=== PATIENT | female | born 1985 | race Caucasian/White ===

== ENCOUNTER 2023-06-08 07:17 | Outpatient (OUT) | payer BC, SELFPAY ==
--- NOTE | 2023-06-08 08:00 | MR_ITS ---
The [address] [address] Patient Name: MIRTA PORRAS MRN: [facility]:[id number] date: 1985 Sex: F Assigned Patient Location: MRI Current Patient Location: MRI Accession/Order Number: [id number] Exam Date: 06/08/2023 08:00 Report Date: 06/08/2023 10:01 At the request of: YARED RAMIREZ Procedure: MR head/brain wo con EXAMINATION: MR head/brain wo con HISTORY: Migraine G43.909 COMPARISON: No relevant comparison available. TECHNIQUE: A variety of imaging planes and parameters were utilized for visualization of suspected pathology. Images were performed without contrast. FINDINGS: CEREBRUM: No edema, hemorrhage, mass, acute infarction, or inappropriate atrophy. CEREBELLUM: No edema, hemorrhage, mass, acute infarction, or inappropriate atrophy. BRAINSTEM: No edema, hemorrhage, mass, acute infarction, or inappropriate atrophy. CSF SPACES: Ventricles, cisterns, and sulci are appropriate for age. No hydrocephalus, subarachnoid hemorrhage, or mass. SKULL: No mass or other significant visible lesion. SINUSES: Limited views demonstrate no significant mucosal thickening or fluid. ORBITS: Limited views are unremarkable. OTHER: Negative. MR/MR head/brain wo con IMPRESSION: 1. Normal examination. Electronically authenticated by: KELLY FRANCO Date: 06/08/2023 10:01
[2023-06-08 09:00] LABS: Basophils Percent Auto 0.7 % (0.2-2.0); Eosinophils Absolute Auto 0.2 10^3/uL (0.0-0.7); Hematocrit 39.8 % (36.0-48.0); Hemoglobin 13.2 g/dL (12.0-16.0); Immature Granulocytes Abs Auto 0.01 10^3/uL (0.00-0.03); Immature Granulocytes Pct Auto 0.2 % (0.0-0.5); Lymphocytes Absolute Auto 1.4 10^3/uL (1.2-3.8); Lymphocytes Percent Auto 31.9 % (20.5-60.0); Mean Corpuscular HGB Conc 33.2 g/dL (29.9-35.2); Mean Corpuscular Hemoglobin 30.2 pg (26.7-34.0); Mean Corpuscular Volume 91.1 fL (81.0-99.0); Mean Platelet Volume 10.6 fL (9.5-13.5); Monocytes Absolute Auto 0.4 10^3/uL (0.3-0.8); Monocytes Percent Auto 9.6 % (1.7-12.0); Neutrophils Absolute Auto 2.3 10^3/uL (1.4-6.5); Neutrophils Percent Auto 53.6 % (43.0-75.0); Platelet Count 257 10^3/uL (150-450); Red Blood Count 4.37 10^6/uL (4.20-5.40); Red Cell Distribution Width 11.7 % (11.0-15.0); White Blood Count 4.3 10^3/uL (4.0-11.0)
[2023-06-08 09:53] LABS: Estimated Average Glucose 100 mg/dL; Glycohemoglobin A1C 5.1 % (4.5-6.2)
[2023-06-08 11:57] LABS: Sodium 138 mmol/L (136-145)
[2023-06-08 11:58] LABS: Alanine Aminotransferase 21 U/L (14-59); Albumin Globulin Ratio 1.3; Alkaline Phosphatase 53 U/L (46-116); Anion Gap 11.4; Aspartate Amino Transferase 13 U/L (15-37); BUN Creatinine Ratio 10.6; Bilirubin Total 0.4 mg/dL (0.2-1.0); Calcium 8.7 mg/dL (8.5-10.1); Carbon Dioxide 27.7 mmol/L (21.0-32.0); Chloride 103 mmol/L (98-107); Cholesterol 196 mg/dL (<=200); Estimated GFR (African America >60 (>=60); Estimated GFR (Non-African Ame >60 (>=60); Globulin 3.1 g/dL; Glucose 91 mg/dL (74-106); Potassium 4.1 mmol/L (3.5-5.1); Total Protein 7.1 g/dL (6.4-8.2); Triglycerides 44 mg/dL (<=150); VLDL CHOLESTEROL 8.8 mg/dL
[2023-06-08 11:59] LABS: Chol HDL Ratio 2.4; HDL Cholesterol 82 mg/dL (40-60)
== END 2023-06-08 07:18 | disposition home or self-care (01) ==
LOC: MRI 07:24
PROVIDERS: PCP Family Medicine; Visit Provider Family Medicine
DX: Z00.00 Encounter for general adult medical examination without abnormal findings (principal); G43.909 Migraine, unspecified, not intractable, without status migrainosus; R73.09 Other abnormal glucose
CPT/HCPCS: 36415; 70551; 80053; 80061; 83036; 84443; 85025

== ENCOUNTER 2023-06-25 09:56 | Outpatient (OUT) | payer BC, SELFPAY ==
--- NOTE | 2023-06-25 10:00 | MM_ITS ---
Patient: MIRTA PORRAS Exam Date: 06/25/2023 : 1985 Gender:F Ordering : DR Travis Morrison . Admission #: [id number] Family : DR Frederick Tompkins . Order #: [id number] CLICK HERE TO VIEW EXAM CORRECTION: Examination was correctly performed of the LEFT breast (not the right breast). Corrected on: 07/19/2023; RADIOLOGY REPORT PROCEDURE: MM TOMOSYNTHESIS DIAGNOSTIC LT COMPARISON: MG MAMM DIAGNOSTIC 3D JORDON CAD, 11/28/2022. INDICATIONS: Left Breast Mass N63.20 Calculator Name NCI Breast Cancer Risk Assessment Tool 5 Year Breast Cancer Risk Not Reported. Lifetime Breast Cancer Risk Not Reported. Personal Breast Cancer No Personal Ovarian Cancer No Treatments None Family Cancers None LOCATION: [facility] BREAST COMPOSITION: Heterogeneously dense,which may obscure small masses. FINDINGS: DIAGNOSTIC CATEGORY 2--BENIGN FINDING: LEFT RIGHT BREAST: Stable biopsy marker clip and partially circumscribed 2.5 cm mass within the upper central breast approximately 12 o'clock. No significant change has occurred. RECOMMENDATIONS: ROUTINE MAMMOGRAM AND CLINICAL EVALUATION IN 12 MONTHS. PLEASE NOTE: A NORMAL MAMMOGRAM DOES NOT EXCLUDE THE POSSIBILITY OF BREAST CANCER. A CLINICALLY SUSPICIOUS PALPABLE LUMP SHOULD BE BIOPSIED. Dictated by: Chris Franks M.D. on 06/26/2023 at 13:09 Approved by: Chris Franks M.D. on 06/26/2023 at 13:39 Dictated by: Chris Franks M.D. on 07/19/2023 at 09:30 Approved by: Chris Franks M.D. on 07/19/2023 at 09:30
--- NOTE | 2023-06-25 10:39 | US_ITS ---
Patient: MIRTA PORRAS Exam Date: 06/25/2023 : 1985 Gender:F Ordering : DR Travis Morrison . Admission #: [id number] Family : DR Frederick Tompkins . Order #: [id number] CLICK HERE TO VIEW EXAM RADIOLOGY REPORT PROCEDURE: US BREAST LT LIMITED COMPARISON: US BREAST LEFT LIMITED, 11/28/2022. MM TOMOSYNTHESIS DIAGNOSTIC LT, 06/25/2023. INDICATIONS: lump left breast TECHNIQUE: Breast ultrasound was performed, with evaluation focusing only on specific areas of concern. FINDINGS: DIAGNOSTIC CATEGORY 2--BENIGN FINDING: RIGHT BREAST: Stable biopsy marker clip in partially circumscribed 2.5 cm mass within the upper central breast approximately 12 o'clock position on today's mammogram. Ultrasound evaluation demonstrates a stable hypoechoic 1.7 x 1.3 x 0.8 cm mass at the 12 o'clock position with adjacent biopsy marker clip. Annual screening mammography is recommended. RECOMMENDATIONS: ROUTINE MAMMOGRAM AND CLINICAL EVALUATION IN 12 MONTHS. PLEASE NOTE: A NORMAL ULTRASOUND EXAMINATION DOES NOT EXCLUDE THE POSSIBILITY OF BREAST CANCER. A CLINICALLY SUSPICIOUS PALPABLE LUMP SHOULD BE BIOPSIED. Dictated by: Chris Franks M.D. on 06/26/2023 at 14:16 Approved by: Chris Franks M.D. on 06/26/2023 at 14:47
== END 2023-06-25 09:57 | disposition home or self-care (01) ==
LOC: MAMMO 09:56
PROVIDERS: PCP Family Medicine; Visit Provider Obstetrics & Gynecology
DX: N63.25 Unspecified lump in the left breast, overlapping quadrants (principal)
CPT/HCPCS: 76642; 77065; G0279

== ENCOUNTER 2024-04-10 19:26 | Outpatient (REF) | payer BC, SELFPAY ==
[2024-04-15 00:08] LABS: Age Gdln ACOG Testing Note (.); HPV Aptima Negative (Negative); IGP, Aptima HPV, rfx 16/18,45 Note (.)
== END 2024-04-10 19:27 | disposition home or self-care (01) ==
LOC: LAB 19:26
PROVIDERS: PCP Family Medicine; Visit Provider Obstetrics & Gynecology
DX: Z01.419 Encounter for gynecological examination (general) (routine) without abnormal findings (principal)
CPT/HCPCS: 87624; 88175

== ENCOUNTER 2024-06-02 07:24 | Outpatient (OUT) | payer BC, SELFPAY ==
--- NOTE | 2024-06-02 | MM_ITS ---
Patient Name: MIRTA PORRAS MR#: [id number] : 1985 Exam Date: 06/02/2024 Ordering Doctor: DR Travis Morrison . RADIOLOGY REPORT PROCEDURE: MM TOMOSYNTHESIS SCREENING BI COMPARISON: MM TOMOSYNTHESIS DIAGNOSTIC LT, 06/25/2023. MG MAMM DIAGNOSTIC 3D JORDON CAD, 11/28/2022. INDICATIONS: Screening for malignant neoplasm of breasts Calculator Name NCI Breast Cancer Risk Assessment Tool 5 Year Breast Cancer Risk Not Reported. Lifetime Breast Cancer Risk Not Reported. Personal Breast Cancer No Personal Ovarian Cancer No Treatments None Family Cancers None LOCATION: The [facility] BREAST COMPOSITION: The breasts are heterogeneously dense,which may obscure small masses. FINDINGS: DIAGNOSTIC CATEGORY 2--BENIGN FINDING: RIGHT BREAST: No significant suspicious finding. Scattered benign-appearing lymph nodes are present. No significant change has occurred. LEFT BREAST: No significant suspicious finding. Stable mass with adjacent biopsy marker clip within supra-areolar anterior breast No significant change has occurred. RECOMMENDATIONS: ROUTINE MAMMOGRAM AND CLINICAL EVALUATION IN 12 MONTHS. PLEASE NOTE: A NORMAL MAMMOGRAM DOES NOT EXCLUDE THE POSSIBILITY OF BREAST CANCER. A CLINICALLY SUSPICIOUS PALPABLE LUMP SHOULD BE BIOPSIED. Dictated by: Chris Franks M.D. on 06/02/2024 at 16:05 Approved by: Chris Franks M.D. on 06/02/2024 at 16:08
--- OUTSIDE RECORDS SUMMARY | 2024-06-02 07:26 | XMS_ITS | CCD ---
Author Organization [facility] Care Team Providers Care Front Desk Team Member Name Role Phone Jennifer Rodrigues Unavailable WILLARD ., DR RIVERA Attending Unavailable WILLARD ., DR RIVERA Consulting Unavailable HOY ., DR VAIL Primary Care Unavailable WILLARD ., DR RIVERA Admitting Unavailable WILLARD ., DR RIVERA Consulting Unavailable HOY ., DR VAIL Primary Care Unavailable WILLARD ., DR RIVERA Admitting Unavailable WILLARD ., DR RIVERA Attending Unavailable ZIEBER, DR KELLY Domínguez Consulting Unavailable HOY ., DR VAIL Attending Unavailable HOY ., DR VAIL Consulting Unavailable HOY ., DR VAIL Primary Care Unavailable HOY ., DR VAIL Admitting Unavailable WILLARD ., DR RIVERA Consulting Unavailable WILLARD ., DR RIVERA Admitting Unavailable HOY ., DR VAIL Primary Care Unavailable WILLARD ., DR RIVERA Attending Unavailable CANTON, DR GE Lopez Consulting Unavailable HOY ., DR VAIL Primary Care Unavailable WILLARD ., DR RIVERA Admitting Unavailable WILLARD ., DR RIVERA Attending Unavailable WILLARD ., DR RIVERA Consulting Unavailable WILLARD ., DR RIVERA Attending Unavailable WILLARD ., DR RIVERA Consulting Unavailable HOY ., DR VAIL Primary Care Unavailable WILLARD ., DR RIVERA Admitting Unavailable ZIEBER, DR KELLY Domínguez Consulting Unavailable WILLARD ., DR RIVERA Attending Unavailable HOY ., DR VAIL Primary Care Unavailable WILLARD ., DR RIVERA Admitting Unavailable ABDOULAYE CHACKO Admitting Unavailable TOOTIE CABRERA Consulting Unavailable JAMES ., DR VAIL Primary Care Unavailable ABDOULAYE CHACKO Attending Unavailable GE GONZALES Consulting Unavailable MIGUEL MORRISON Attending Unavailable Allergies Allergy Classification Reported Allergen(s) Allergy Type Date of Onset Reaction(s) Facility (1 source) Sulfacetamide / Sulfur Drug Allergy Apttuses [facility] Other (1 source) Sulfonamides (Antibiotic) Drug allergy (disorder) [address] [facility] Repository Medications Current Medications Medication Drug Class(es) Dates Sig (Normalized) Sig (Original) levothyroxine (1 source) l-Thyroxine Levothyroxine So dium Active Problems Active Problems Problem Classification Problem Date Documented Da te Episodic/Chronic Menstrual disorders (5 sources) Irregular menstruation, unspecified; Translations: [IRREGULAR MENSTRUATION UNSPECIFIED] Onset: 12-07-2022 Chronic Nonmalignant breast conditions (5 sources) Hypertrophy of breast; Translations: [Unspecified lump in the left breast, unspecified quadrant] Onset: 11-28-2022 Episodic Other upper respiratory infections (1 source) Acute upper respiratory infection, unspecified Episodic Unclassified (4 sources) Unspecified lump in the left breast, overlapping quadrants; Translations: [UNS LUMP LT BREAST OVRLPNG QUADRNTS] Onset: 12-05-2022 Past or Other Problems Problem Classification Problem Date Documented Date Episodic/Chronic Immunizations and screening for infectious disease (2 sources) Contact with and (suspected) exposure to other viral communicable diseases; Translations: [Encounter for screening for human papillomavirus (HPV)] Onset: 09-07-2022 Episodic Other connective tissue disease (3 sources) Pain in right finger(s); Translations: [PAIN IN RIGHT FINGERS] Onset: 04-23-2022 Episodic Other screening for suspected conditions (not mental disorders or infectious disease) (4 sources) Encounter for screening for malignant neoplasm of cervix; Translations: [ENC SCREENING MALIG NEOPLASM CERV] Onset: 09-05-2022 Episodic Skin and subcutaneous tissue infections (1 source) Cellulitis of right finger; Translations: [CELLULITIS OF RIGHT FINGER] Onset: 04-25-2022 Episodic Results Test Name Value Interpretation Reference Range Facility US PREG TVon 12-21-2022 US PREG TV EXAMINATION: US PREG TV HISTORY: Irregular periods COMPARISON: No relevant comparison available. FINDINGS: GESTATIONAL SAC: Absent YOLK SAC: Absent POLE: Absent CARDIAC: Absent UTERUS: Normal size and appearance. Endometrium is 4 mm in thickness. OVARIES: Right: Corpus lutein cyst or collapsing follicle. Left: Normal. CERVIX: 1.7 cm in length and closed. CUL-DE-SAC: Normal. OTHER: None. AGE BY LMP: Unknown THAD BY LMP: AGE BY US CRL: Not applicable THAD BY US CRL: IMPRESSION: 1. No intrauterine . Thin endometrium; no suspicious adnexal findings. Electronically authenticated by: KELLY FRANCO Date: 2022-12-21 15:[address] 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 Morrison. Verified with Gracie that report was present in the office. Original Report EXAM: US VAC ASST BX BREAST LT W CLIP HISTORY: Lump in left breast COMPARISON: Ultrasound breast left 11/28/2022 TECHNIQUE: After obtaining informed consent, ultrasound-guided biopsy was performed in the usual sterile manner. The location of the biopsy was then marked as indicated below. FINDINGS: Specimen #, Location: 3 sample cores, 12:00 left breast, hypoechoic 1.7 x 1.2 x 0.8 cm mass. Biopsy Needle: 13 gauge vacuum core biopsy needle. Marker(s): A single metallic marker was placed in the appropriate targeted location. Medication: Buffered 1% Lidocaine with epinephrine administered locally. Complications: None. Pathology: Pending. IMPRESSION: 1. Uneventful ultrasound-guided breast biopsy. 2. Pathology results are pending. An addendum to this report will be provided after pathology results are available. Normal [facility] PREG QUANT HCGon 12-12-2022 HCG QUANT 554 mIU/mL Normal [facility] Comment on above: Performed By: #### P REGQNT #### [facility] [address] [place] [address] Dr. Sherri Segundo HCG RANGE SEE BELOW Normal [facility] Comment on above: Result Comment: 5-50 0.2-1 WEEK 50-500 1-2 WEEKS 100-5,000 2-3 WEEKS 500-10,000 3-4 WEEKS 1,000-50,000 4-5 WEEKS 10,000-100,000 5-6 WEEKS 15,000-200,000 6-8 WEEKS 10,000-100,000 2-3 MONTHS Performed By: #### P REGQNT #### [facility] [address] [place] [address] Dr. Sherri Segundo PREG QUANT HCGon 12-07-2022 HCG QUANT 101 mIU/mL Normal [facility] Comment on above: Performed By: #### P REGQNT #### [facility] [address] [place] [address] Dr. Sherri Segundo HCG RANGE SEE BELOW Normal [facility] Comment on above: Result Comment: 5-50 0.2-1 WEEK 50-500 1-2 WEEKS 100-5,000 2-3 WEEKS 500-10,000 3-4 WEEKS 1,000-50,000 4-5 WEEKS 10,000-100,000 5-6 WEEKS 15,000-200,000 6-8 WEEKS 10,000-100,000 2-3 MONTHS Performed By: #### P REGQNT #### [facility] [address] [place] [address] Dr. Sherri Segundo PREG QUANT HCGon 12-05-2022 HCG QUANT 40 mIU/mL Normal [facility] Comment on above: Performed By: #### [id number] #### [facility] [address] [place] [address] Dr. Sherri Segundo HCG RANGE SEE BELOW Normal [facility] Comment on above: Result Comment: 5-50 0.2-1 WEEK 50-500 1-2 WEEKS 100-5,000 2-3 WEEKS 500-10,000 3-4 WEEKS 1,000-50,000 4-5 WEEKS 10,000-100,000 5-6 WEEKS 15,000-200,000 6-8 WEEKS 10,000-100,000 2-3 MONTHS Performed By: #### 4 [id number] #### [facility] [address] [place] [address] Dr. Sherri Segundo MG MAMM DIAGNOSTIC 3D JORDON CA Don 11-28-2022 MG MAMM DIAGNOSTIC 3D JORDON CAD Patient: MIRTA PORRASYovana Exam Date: 11/28/2022 : 1985 Gender:F Ordering : DR MIGUEL MORRISON . Admission #: [id number] Family : Order #: [id number] CLICK HERE TO VIEW EXAM RADIOLOGY REPORT PROCEDURE: MAMMOGRAM DIAGNOSTIC 3D BILATERAL CAD COMPARISON: US BREAST LEFT LIMITED, 11/28/2022. INDICATIONS: Lump in left breast Calculator Name NCI Breast Cancer Risk Assessment Tool 5 Year Breast Cancer Risk Not Reported. Lifetime Breast Cancer Risk Not Reported. Personal Breast Cancer No Personal Ovarian Cancer No Treatments None Family Cancers None LOCATION: [facility] BREAST COMPOSITION: Heterogeneously dense,which may obscure small masses. FINDINGS: DIAGNOSTIC CATEGORY 4--SUSPICIOUS FOR MALIGNANCY. FINDING DOES NOT EXHIBIT CLASSIC FINDINGS OF BREAST CANCER: The breasts are medium in size with heterogeneously dense fibroglandular tissue limiting diagnostic sensitivity.Scattere d benign-appearing calcifications are present. Scattered benign-appearing lymph nodes are present. RIGHT BREAST: Area focal asymmetry seen on the CC projection in the outer half of the breast not seen on the MLO projection likely representing overlap of fibroglandular tissue. LEFT BREAST: In the area the patient's palpable , a 2.3 x 1.3 cm area of increased density is noted deep to the triangle marker, upper-outer quadrant, mid breast. Ultrasound demonstrates at the 12 o'clock position 2.3 cm from the nipple a lobulated heterogeneous hypoechogenic solid vascular mass measuring 1.5 x 1.0 x 1.3 cm. 1 cm away is a similar hypoechogenic oval well-circumscribed mass measuring 0.8 x 0.5 x 0.8 cm. Findings were discussed with the patient. Left breast ultrasound-guided core biopsy of the larger more suspicious 1.5 cm nodule was recommended to the patient RECOMMENDATIONS: ULTRASOUND-GUIDED CORE BIOPSY: LEFT BREAST 1.5 cm mass PLEASE NOTE: A NORMAL MAMMOGRAM DOES NOT EXCLUDE THE POSSIBILITY OF BREAST CANCER. A CLINICALLY SUSPICIOUS PALPABLE LUMP SHOULD BE BIOPSIED. Dictated by: Ge Terry MD on 11/28/2022 at 10:55 Approved by: Ge Terry MD on 11/28/2022 at 11:[address] [facility] US BREAST LEFT LIMITEDon US BREAST LEFT LIMITED Patient: VERN MIRTA LevyYovana Exam Date: 11/28/2022 : 1985 Gender:F Ordering : DR MIGUEL MORRISON . Admission #: [id number] Family : Order #: [id number] CLICK HERE TO VIEW EXAM RADIOLOGY REPORT PROCEDURE: ULTRASOUND BREAST LEFT LIMITED COMPARISON: MG MAMM DIAGNOSTIC 3D JORDON CAD, 11/28/2022. INDICATIONS: Lump in left breast TECHNIQUE: Breast ultrasound was performed, with evaluation focusing only on specific areas of concern. FINDINGS: DIAGNOSTIC CATEGORY 4--SUSPICIOUS FOR MALIGNANCY. FINDING DOES NOT EXHIBIT CLASSIC FINDINGS OF BREAST CANCER: At the 12 o'clock position 2.3 cm from the nipple lobulated heterogeneous hypoechogenic solid vascular mass measuring 1 5 x 1.0 x 1.3 cm. 1 cm away is similar hyper echogenic oval well-circumscribed mass measuring 0.8 x 0.5 x 0.8 cm. RECOMMENDATIONS: ULTRASOUND-GUIDED CORE BIOPSY: LEFT BREAST PLEASE NOTE: A NORMAL ULTRASOUND EXAMINATION DOES NOT EXCLUDE THE POSSIBILITY OF BREAST CANCER. A CLINICALLY SUSPICIOUS PALPABLE LUMP SHOULD BE BIOPSIED. Dictated by: Ge Terry MD on 12/07/2022 at 07:40 Approved by: Ge Terry MD on 12/07/2022 at 07:43 Normal [facility] COVID/FLU/RSV RT-PCRon 11-02 SARS-CoV-2 (COVID-19) RNA BALTA+probe Ql (Unsp spec) Negative [facility] Other COVID/FLU/RSV RT-PCR Negative [facility] Other PAP ACOG PANEL 2: 30 to 65on 09-13-2022 . . Normal [facility] Comment on above: Result Comment: Perf ormed at: WB Performed By: #### [id number] #### [facility] [address] [address] [address] Sherri Segundo Age Gdln ACOG Testing 30-65 Normal [facility] Comment on above: Performed By: #### [id number] #### [facility] [address] [place], [place] [address] Dr. Sherri Segundo DIAGNOSIS: Comment Normal [facility] Comment on above: Result Comment: NEGA TIVE FOR INTRAEPITHELIAL LESION OR MALIGNANCY. THIS SPECIMEN WAS RESCREENED PART OF OUR [employer] EXECUTIVE PROGRAM. Performed at: WB Performed By: #### [id number] #### [facility] [address] [place] [address] Dr. Sherri Segundo HPV Aptima Negative Normal Negative [facility] Comment on above: Result Comment: This nucleic acid amplification test detects fourteen high-risk HPV types (16,18,31,33,35,39,45,51,52,56,58,59,66,68) without differentiation. Performed at: =G Performed By: #### [id number] #### [facility] [address] [address] [address] Sherri Segundo HPV Genotype Reflex Comment Normal [facility] Comment on above: Result Comment: Crit eria not met, HPV Genotype not performed. Performed at: WB Performed By: #### [id number] #### [facility] [address] [place] [address] Dr. Sherri Segundo Methodology: Comment Normal [facility] Comment on above: Result Comment: This liquid based ThinPrep(R) pap test was screened with the use of an image guided system. Performed at: WB Performed By: #### [id number] #### [facility] [address] [place] [address] Dr. Sherri Segundo Note: Comment Normal [facility] Comment on above: Result Comment: The Pap smear is a screening test designed to aid in the detection of premalignant and malignant conditions of the uterine cervix. It is not a diagnostic procedure and should not be used as the sole means of detecting cervical cancer. Both false-positive and false-negative reports do occur. . Performed at: WB Performed By: #### [id number] #### [facility] [address] [place] [address] Dr. Sherri Segundo Performed by: Comment Normal [facility] Comment on above: Result Comment: Joselito Estrada, Copier And [employer]inter Field Technician Performed at: WB Performed By: #### [id number] #### [facility] [address] [place] [address] Dr. Sherri Segundo QC reviewed by: Comment Normal [facility] Comment on above: Result Comment: Oral a Conner, Supervisory Copier [employer] Printer Field Technician (ASCP) Performed at: WB Performed By: #### [id number] #### [facility] [address] [place] [address] Dr. Sherri Segundo Specimen adequacy: Comment Normal [facility] Comment on above: Result Comment: Sati sfactory for evaluation. Endocervical and/or squamous metaplastic cells (endocervical component) are present. Performed at: WB Performed By: #### 4 [id number] #### [facility] [address] [place] [address] Dr. Sherri Segundo CBC AUTO DIFFon 06-27-2022 BASO # 0.1 103/ul Normal 0.0-0.1 [facility] Comment on above: Performed By: #### C BC #### [facility] [address] [place] [address] Dr. Sherri Segundo Basophils/100 WBC (Bld) 1.1 % Normal 0.2-2.0 [facility] Comment on above: Performed By: #### C BC #### [facility] [address] [place] [address] Dr. Sherri Segundo EO # 0.2 103/ul Normal 0.0-0.7 [facility] Comment on above: Performed By: #### C BC #### [facility] [address] [place] [address] Dr. Sherri Segundo Eosinophils/100 WBC (Bld) 4.5 % Normal 0.9-7.0 [facility] Comment on above: Performed By: #### C BC #### [facility] [address] [place] [address] Dr. Sherri Segundo Erythrocyte distribution width (RBC) [Ratio] 11.9 % Normal 11.0-15.0 [facility] Comment on above: Performed By: #### C BC #### [facility] [address] [place] [address] Dr. Sherri Segundo Hematocrit (Bld) [Volume fraction] 40.2 % Normal 36.0-48.0 [facility] Comment on above: Performed By: #### C BC #### [facility] [address] [place] [address] Dr. Sherri Segundo Hemoglobin (Bld) [Mass/Vol] 13.5 g/dL Normal 12.0-16.0 [facility] Comment on above: Performed By: #### C BC #### [facility] [address] [place] [address] Dr. Sherri Segundo IG # 0.01 10e3/ul Normal 0.00-0.03 [facility] Comment on above: Performed By: #### C BC #### [facility] [address] [place] [address] Dr. Sherri Segundo IG % 0.2 % Normal 0.0-0.5 [facility] Comment on above: Performed By: #### C BC #### [facility] [address] [place] [address] Dr. Sherri Segundo LYMPH # 1.6 103/ul Normal 1.2-3.[address] [facility] Comment on above: Performed By: #### C BC #### [facility] [address] [place] [address] Dr. Sherri Segundo Lymphocytes/100 WBC (Bld) 35.2 % Normal 20.5-60.0 [facility] Comment on above: Performed By: #### C BC #### [facility] [address] [place] [address] Dr. Sherri Segundo MANUAL DIFF REQ NO Normal [facility] Comment on above: Performed By: #### C BC #### [facility] [address] [place] [address] Dr. Sherri Segundo MCH (RBC) [Entitic mass] 30.6 pg Normal 26.7-34.[address] [facility] Comment on above: Performed By: #### C BC #### [facility] [address] [place] [address] Dr. Sherri Segundo MCHC (RBC) [Mass/Vol] 33.6 g/dL Normal 29.9-35.[address] [facility] Comment on above: Performed By: #### C BC #### [facility] [address] [place] [address] Dr. Sherri Segundo MCV (RBC) [Entitic vol] 91.2 fL Normal 81.0-99.[address] [facility] Comment on above: Performed By: #### C BC #### [facility] [address] [place] [address] Dr. Sherri Segundo MONO # 0.4 103/ul Normal 0.3-0.[address] [facility] Comment on above: Performed By: #### C BC #### [facility] [address] [address] [address] Sherri Segundo Monocytes/100 WBC (Bld) 8.4 % Normal 1.7-12.[address] [facility] Comment on above: Performed By: #### C BC #### [facility] [address] [place] [address] Dr. Sherri Segundo NEUT # 2.3 103/ul Normal 1.4-6.[address] [facility] Comment on above: Performed By: #### C BC #### [facility] [address] [place] [address] Dr. Sherri Segundo Neutrophils/100 WBC (Bld) 50.6 % Normal 43.0-75.[address] [facility] Comment on above: Performed By: #### C BC #### [facility] [address] [place] [address] Dr. Sherri Segundo Platelet mean volume (Bld) [Entitic vol] 10.3 fL Normal 9.5-13.[address] [facility] Comment on above: Performed By: #### C BC #### [facility] [address] [place] [address] Dr. Sherri Segundo PLT 278 103/ul Normal 150-[address] [facility] Comment on above: Performed By: #### C BC #### [facility] [address] [place] [address] Dr. Sherri Segundo RBC 4.41 106/ul Normal 4.20-5.[address] [facility] Comment on above: Performed By: #### C BC #### [facility] [address] [place] [address] Dr. Sherri Segundo WBC 4.6 103/ul Normal 4.0-11.0 [facility] Comment on above: Performed By: #### C BC #### [facility] [address] [place] [address] Dr. Sherri Segundo GLYCOHEMOGLOBIN A1Con 2021 ADA RECOMMENDATION SEE BELOW Normal [facility] Comment on above: Result Comment: ADA RECOMMENDED LIMIT 4.0 - 6.0 ADA THERAPEUTIC TARGET < 7.0 ACTION SUGGESTED > 7.0 Performed By: #### A 1C #### [facility] [address] [place] [address] Dr. Sherri Segundo Glucose [Mass/Vol] 100 mg/dL Normal [facility] Comment on above: Performed By: #### A 1C #### [facility] [address] [place] [address] Dr. Sherri Segundo HbA1c (Bld) [Mass fraction] 5.1 % Normal 4.5-6.2 [facility] Comment on above: Performed By: #### A 1C #### [facility] [address] [place] [address] Dr. Sherri Segundo LIPID PROFILEon 06-27-2022 CHOL-HDL RATIO NORM SEE BELOW Normal [facility] Comment on above: Result Comment: 3.3 - 4.4 LOW RISK 4.4 - 7.1 AVERAGE RISK 7.1 - 11.0 MODERATE RISK >11.0 HIGH RISK Performed By: #### [id number] #### [facility] [address] [place] [address] Dr. Sherri Segundo Cholesterol [Mass/Vol] 219 mg/dL Critically high <=200 [facility] Comment on above: Performed By: #### 4 [id number] #### [facility] [address] [address] [address] Sherri Segundo Cholesterol in HDL [Mass/Vol] 86 mg/dL Critically high 40-60 [facility] Comment on above: Performed By: #### 4 [id number] #### [facility] [address] [place] [address] Dr. Sherri Segundo Cholesterol in LDL [Mass/Vol] 120.8 mg/dL Normal [facility] Comment on above: Performed By: #### [id number] #### [facility] [address] [address] [address] Sherri Segundo Cholesterol.total/Ch olesterol in HDL [Mass ratio] 2.5 {ratio} Normal [facility] Comment on above: Performed By: #### 4 [id number] #### [facility] [address] [address] [address] Sherri Segundo HDL NORMAL > or = 60 mg/dl - LOW CARDIOVASCULAR RISK <40 mg/dl - HIGH CARDIOVASCULAR RISK Normal [facility] Comment on above: Performed By: #### 4 [id number] #### [facility] [address] [address] [address] Sherri Segundo LDL CALC NORMAL SEE BELOW Normal [facility] Comment on above: Result Comment: <100 mg/dl OPTIMAL 100 - 129 mg/dl NEAR OR ABOVE OPTIMAL 130 - 159 mg/dl BORDERLINE HIGH 160 - 189 mg/dl HIGH >190 mg/dl VERY HIGH Performed By: #### 4 [id number] #### [facility] [address] [address] [address] Sherri Segundo Triglyceride [Mass/Vol] 61 mg/dL Normal <=150 [facility] Comment on above: Performed By: #### 4 [id number] #### [facility] [address] [address] [address] Sherri Segundo VLDL CALC 12.2 mg/dL Normal [facility] Comment on above: Performed By: #### [id number] #### [facility] [address] [address] [address] Sherri Segundo PROF 14(COMP METB)on 022 Albumin [Mass/Vol] 4.1 g/dL Normal 3.4-5.0 [facility] Comment on above: Performed By: #### 4 [id number] #### [facility] [address] [address] [address] Sherri Segundo Albumin/Globulin [Mass ratio] 1.3 {ratio} Normal [facility] Comment on above: Performed By: #### 4 [id number] #### [facility] [address] [address] [address] Sherri Segundo ALP [Catalytic activity/Vol] 65 U/L Normal 46-116 [facility] Comment on above: Performed By: #### 4 [id number] #### [facility] [address] [address] [address] Sherri Segundo ALT [Catalytic activity/Vol] 14 U/L Normal 14-59 [facility] Comment on above: Performed By: #### 4 [id number] #### [facility] [address] [address] [address] Sherri Segundo Anion gap [Moles/Vol] 11.0 mmol/L Normal [facility] Comment on above: Performed By: #### 4 [id number] #### [facility] [address] [place] [address] Dr. Sherri Segundo AST [Catalytic activity/Vol] 11 U/L Critically low 15-37 [facility] Comment on above: Performed By: #### 4 [id number] #### [facility] [address] [address] [address] Sherri Segundo Bilirubin [Mass/Vol] 0.7 mg/dL Normal 0.2-1.0 [facility] Comment on above: Performed By: #### 4 [id number] #### [facility] [address] [place] [address] Dr. Sherri Segundo Calcium [Mass/Vol] 8.9 mg/dL Normal 8.5-10.1 [facility] Comment on above: Performed By: #### 4 [id number] #### [facility] [address] [address] [address] Sherri Segundo Chloride [Moles/Vol] 101 mmol/L Normal 98-107 [facility] Comment on above: Performed By: #### 4 [id number] #### [facility] [address] [address] [address] Sherri Segundo CO2 [Moles/Vol] 30.9 mmol/L Normal 21.0-32.0 [facility] [facility] Comment on above: Performed By: #### [id number] #### [facility] [address] [address] [address] Sherri Segundo Creatinine [Mass/Vol] 0.87 mg/dL Normal 0.55-1.[address] [facility] Comment on above: Performed By: #### [id number] #### [facility] [address] [address] [address] Sherri Segundo EGFR-AF PARAGUAYAN >60 Normal >=60 [facility] Comment on above: Performed By: #### [id number] #### [facility] [address] [address] [address] Sherri Segundo EGFR-NON AF PARAGUAYAN >60 Normal >=60 [facility] Comment on above: Performed By: #### [id number] #### [facility] [address] [place] [address] Dr. Sherri Segundo Globulin (S) [Mass/Vol] 3.2 g/dL Normal [facility] Comment on above: Performed By: #### [id number] #### [facility] [address] [address] [address] Sherri Segundo Glucose [Mass/Vol] 97 mg/dL Normal 74-106 [facility] Comment on above: Performed By: #### [id number] #### [facility] [address] [place] [address] Dr. Sherri Segundo Potassium [Moles/Vol] 3.9 mmol/L Normal 3.5-5.[address] [facility] Comment on above: Performed By: #### [id number] #### [facility] [address] [place] [address] Dr. Sherri Segundo Protein [Mass/Vol] 7.3 g/dL Normal 6.4-8.2 [facility] Comment on above: Performed By: #### [id number] #### [facility] [address] [place] [address] Dr. Sherri Segundo Sodium [Moles/Vol] 139 mmol/L Normal 136-145 [facility] Comment on above: Performed By: #### [id number] #### [facility] [address] [place] [address] Dr. Sherri Segundo Urea nitrogen [Mass/Vol] 13.0 mg/dL Normal 7.0-18.0 [facility] Comment on above: Performed By: #### [id number] #### [facility] [address] [address] [address] Sherri Segundo Urea nitrogen/Creatinine [Mass ratio] 14.9 mg/mg Normal [facility] Comment on above: Performed By: #### [id number] #### [facility] [address] [address] [address] Sherri Segundo TSHon 06-27-2022 TSH 3.719 uIU/mL Normal 0.358-3.740 [facility] Comment on above: Performed By: #### [id number] #### [facility] [address] [place] [address] Dr. Sherri Segundo XR HAND RT MIN 3Von 04-23-20 22 XR HAND RT MIN 3V EXAM: XR HAND RT MIN 3V HISTORY: Hand pain and edema COMPARISON: None. TECHNIQUE: 3 views FINDINGS: No osseous lesion, fracture, dislocation or subluxation. Joint spaces are normal. No visualized effusion. No visualized soft tissue edema. IMPRESSION: Normal x-rays Electronically authenticated by: GE GONZALES Date: 2022-04-23 21:58 Normal [facility] Vital Signs Date Time Vital Sign Value Performing Clinician Facility 11-02-2022 17:30-0500 Body height 154.94 cm Jennifer Rodrigues Other [facility] Other 11-02-2022 17:30-0500 Body mass index (BMI) [Ratio] 24.56 kg/m2 Jennifer Rodrigues Other [facility] Other 11-02-2022 17:30-0500 Body temperature 98.2 [degF] Jennifer Rodrigues Other [facility] Other 11-02-2022 17:30-0500 Body weight 58.97 kg Jennifer Rodrigues Other [facility] Other 11-02-2022 17:30-0500 Respiratory rate 18 /min Jennifer Ravi Other [facility] Other 11-02-2022 17:30-0500 SaO2% (BldA) [Mass fraction] 98 % Jennifer Rodrigues Other [facility] Other Encounters Encounter Date Encounter Type Care Provider Facility Start: 04-10-2024 End: 04-10-2024 ambulatory MIGUEL MORRISON Not Available Start: 01-05-[address] MIGUEL MORRISON . Facili ty:[facility] Start: 12-21-2022 End: 12-22-[address] MIGUEL MORRISON . Facility:[facility] Start: 12-07-2022 End: 01-03-[address] MIGUEL MORRISON . Facility:[facility] Start: 12-05-2022 End: 12-05-[address] MIGUEL MORRISON . Facility:[facility] Start: 11-28-2022 End: 11-29-[address] GE TERRY Facility:[facility] Start: 11-02-2022 End: 11-02-2022 ambulatory Jennifer Rodrigues Other [facility] Other Start: 11-02-2022 Office outpatient vi sit 25 minutes Jennifer Rodrigues [facility] Start: 09-05-2022 End: 09-05-[address] MIGUEL MORRISON . Facility:[facility] Start: 06-29-2022 Encounter for genera l adult medical examination without abnormal findings DR YARED RAMIREZ . [facility] Start: 06-27-2022 End: 06-28-[address] YARED RAMIREZ . Facility:[facility] Start: 06-27-2022 End: 06-28-2022 Encounter for general adult medical examination without abnormal findings DR YARED RAMIREZ . Facility:[facility] Start: 04-23-2022 End: 04-24-2022 ambulatory ABDOULAYE CHACKO Facility:[facility] Payers Date Payer Category Payer Unknown [id number] 2019 Unknown [id number]. [id number] 1985 Unknown [id number] 2.16.84 [id number] 1985 Unknown [id number] 2.16.84 [id number] 1985 Unknown [id number] 2.16.84 [id number] 1985 Unknown [id number] 2.16.84 [id number] 1985 Unknown [id number] 2.16.84 [id number] 1985 Unknown [id number] 2.16.84 [id number] 1985 Unknown [id number] 2.16.84 [id number] 1985 Unknown [id number] 2.16.84 [id number] 1985 Unknown [id number] 2.16.84 [id number] Social History Date Type Detail Facility Sex Assigned At [facility] Other Evaluation note 11-02-2022 Note Date & Type Note Facility 11-02-2022 Evaluation note Encounter Date Diagnosis Assessment Notes Oct, Contact with and (suspected) exposure to other viral communicable diseases (ICD-10 - Z20.828) Oct, Viral URI (ICD-10 - J06.9) Symptoms appear viral today. Bacteria infections take several days to weeks of symptoms to develop. Use saline nasal spray before prescription one and you have better results. Recommend OTC medications such as Mucinex DM, Delsym, Cepocal Lozenges Continue tylenol/ibuprof en for general discomfort. Encourage fluids. Symptoms should improve within the next 10-14 days. If no improvement of symptoms in 14 days call primary care provider to discuss antibiotic therapy [facility] Other History general Narrative - Reported Note Date & Type Note Facility History general Narrative - Reported Type Medical History Hypothyroidism [facility] Other Summary Purpose Family History No Family History Records FoundNo Family History Records Found Advance Directives No Advanced Directives Records FoundNo Advanced Directives Records Found Additional Source Comments REASON FOR VISIT (unrecogniz ed section and content) H/A, COUGH, CONGESTION INFORMATION SOURCE (unrecogn ized section and content) DATE CREATED AUTHOR 01/04/2023 [facility] DATE CREATED AUTHOR AUTHOR'S ORGANIZ ATION 04/11/2024 [facility] FOR RECORDS PERTAINING TO PATIENTS WHO ARE OR HAVE BEEN ENROLLED IN A CHEMICAL DEPENDENCY/SUBSTANCEABUSE PROGRAM, SOME INFORMATION MAY BE OMITTED. This clinical summary was aggregated from multiple sources. Caution should be exercised in using it in the provision of clinical care. This summary normalizes information from multiple sources, and as a consequence, information in this document may materially change the coding, format and clinical context of patient data. In addition, data may be omitted in some cases. CLINICAL DECISIONS SHOULD BE BASED ON THE PRIMARY CLINICAL RECORDS. [employer] provides no warranty or guarantee of the accuracy or completeness of information in this document.
== END 2024-06-02 07:25 | disposition home or self-care (01) ==
LOC: MAMMO 07:24
PROVIDERS: PCP Family Medicine; Visit Provider Obstetrics & Gynecology
DX: Z12.31 Encounter for screening mammogram for malignant neoplasm of breast (principal)
CPT/HCPCS: 77063; 77067

== ENCOUNTER 2024-07-22 08:59 | Outpatient (OUT) | payer BC, SELFPAY ==
--- OUTSIDE RECORDS SUMMARY | 2024-07-22 09:23 | XMS_ITS | CCD ---
Author Organization [facility] Care Team Providers Care Neurology Epilepsy Physician Name Role Phone Jennifer Rodrigues Unavailable WILLARD [...] Unavailable WILLARD ., DR RIVERA Attending Unavailable MANCHACA, DR GE Lopez Consulting Unavailable HOY ., [...] (1 source) Sulfacetamide / Sulfur Drug Allergy [employer] Other (1 source) Sulfonamides (Antibiotic) Drug allergy (disorder) 4 [facility] Repository Medications Current Medications Medication Drug Class(es) [...] KELLY FRANCO Date: 2022-12-21 15:08 Normal [facility] US VAC ASST BX BREAST LT W C LIPon 12-14-2022 US VAC ASST BX BREAST LT W CLIP Begin Addendum #1 COLLECTED DATE/TIME: 12/05/2022; 11:23 EST Final Diagnosis Report for [facility] [place] LEFT BREAST 12 O'CLOCK MASS; BIOPSY: [...] after pathology results are available. Normal [facility] PREG QUANT HCGon 12-12-2022 HCG QUANT 554 mIU/mL Normal [facility] Comment on above: Performed By: #### P REGQNT #### [facility] [address] [place] [address] Dr. Sehrri Segundo HCG RANGE SEE BELOW Normal [facility] Comment on above: Result Comment: 5-50 0.2-1 WEEK 50-500 1-2 WEEKS 100-5,000 2-3 WEEKS 500-10,000 3-4 WEEKS 1,000-50,000 4-5 WEEKS 10,000-100,000 5-6 WEEKS 15,000-200,000 6-8 WEEKS 10,000-100,000 2-3 MONTHS Performed By: #### P REGQNT #### [facility] [address] [place] [address] Dr. Sherri Segundo PREG QUANT HCGon 12-07-2022 HCG QUANT 101 mIU/mL Normal [facility] Comment on above: Performed By: #### P REGQNT #### [facility] [address] [place] [address] Dr. Sherri Segundo HCG RANGE SEE BELOW Normal [facility] Comment on above: Result Comment: 5-50 0.2-1 WEEK 50-500 1-2 WEEKS 100-5,000 2-3 WEEKS 500-10,000 3-4 WEEKS 1,000-50,000 4-5 WEEKS 10,000-100,000 5-6 WEEKS 15,000-200,000 6-8 WEEKS 10,000-100,000 2-3 MONTHS Performed By: #### P REGQNT #### [facility] [address] [place] [address] Dr. Sherri Segundo PREG QUANT HCGon 12-05-2022 HCG QUANT 40 mIU/mL Normal [facility] Comment on above: Performed By: #### 4 [id number] #### [facility] [address] [place] [address] Dr. Sherri Segundo HCG RANGE SEE BELOW Normal [facility] Comment on above: Result Comment: 5-50 0.2-1 WEEK 50-500 1-2 WEEKS 100-5,000 2-3 WEEKS 500-10,000 3-4 WEEKS 1,000-50,000 4-5 WEEKS 10,000-100,000 5-6 WEEKS 15,000-200,000 6-8 WEEKS 10,000-100,000 2-3 MONTHS Performed By: #### 4 [id number] #### [facility] [address] [place] [address] Dr. Sherri Segundo MG MAMM DIAGNOSTIC 3D JORDON CA Don 11-28-2022 MG MAMM DIAGNOSTIC 3D JORDON CAD Patient: MIRTA PORRASYovana Exam Date: 11/28/2022 : 1985 Gender:F Ordering : DR MIGUEL MORRISON . Admission #: [id number] Family : Order #: [id number] CLICK HERE TO VIEW EXAM RADIOLOGY REPORT PROCEDURE: MAMMOGRAM DIAGNOSTIC 3D BILATERAL CAD COMPARISON: US BREAST LEFT LIMITED, 11/28/2022. INDICATIONS: Lump in left breast Calculator Name NCI Breast Cancer Risk Assessment Tool 5 Year Breast Cancer Risk Not Reported. Lifetime Breast Cancer Risk Not Reported. Personal Breast Cancer No Personal Ovarian Cancer No Treatments None Family Cancers None LOCATION: [facility] BREAST COMPOSITION: Heterogeneously dense,which may obscure small [...] MD on 11/28/2022 at 11:05 Normal [facility] US BREAST LEFT LIMITEDon US BREAST LEFT LIMITED Patient: VERN MIRTA LevyYovana Exam Date: 11/28/2022 : 1985 Gender:F Ordering : DR MIGUEL MORRISON . Admission #: [id number] Family : Order #: [id number] CLICK HERE TO VIEW EXAM RADIOLOGY REPORT [...] Terry MD on 12/07/2022 at 07:43 Normal [facility] COVID/FLU/RSV RT-PCRon 11-02 SARS-CoV-2 (COVID-19) RNA BALTA+probe Ql (Unsp spec) Negative [place] [employer] Other COVID/FLU/RSV RT-PCR Negative [facility] [employer] Other PAP ACOG PANEL 2: 30 to 65on 09-13-2022 . . Normal [facility] Comment on above: Result Comment: Perf ormed at: WB Performed By: #### 4 [id number] #### [facility] [address] [address] [address] Sherri Segundo Age Gdln ACOG Testing 30-65 Normal [facility] Comment on above: Performed By: #### 4 [id number] #### [facility] [address] [place], [place] [address] Dr. Sherri Segundo DIAGNOSIS: Comment Normal [facility] Comment on above: Result Comment: NEGA TIVE FOR INTRAEPITHELIAL LESION OR MALIGNANCY. THIS SPECIMEN WAS RESCREENED PART OF OUR TURF KEEPER PROGRAM. Performed at: WB Performed By: #### 4 [id number] #### [facility] [address] [place] [address] Dr. Sherri Segundo HPV Aptima Negative Normal Negative [facility] Comment on above: Result Comment: This nucleic acid amplification test detects fourteen high-risk HPV types (16,18,31,33,35,39,45,51,52,56,58,59,66,68) without differentiation. Performed at: =G Performed By: #### 4 [id number] #### [facility] [address] [address] [address] Sherri Segundo HPV Genotype Reflex Comment Normal [facility] Comment on above: Result Comment: Crit eria not met, HPV Genotype not performed. Performed at: WB Performed By: #### 4 [id number] #### [facility] [address] [place] [address] Dr. Sherri Segundo Methodology: Comment Normal [facility] Comment on above: Result Comment: This liquid based ThinPrep(R) pap test was screened with the use of an image guided system. Performed at: WB Performed By: #### 4 [id number] #### [facility] [address] [place] [address] Dr. Sherri Segundo Note: Comment Normal [facility] Comment on above: Result Comment: The Pap smear is a screening test designed to aid in the detection of premalignant and malignant conditions of the uterine cervix. It is not a diagnostic procedure and should not be used as the sole means of detecting cervical cancer. Both false-positive and false-negative reports do occur. . Performed at: WB Performed By: #### 4 [id number] #### [facility] [address] [place] [address] Dr. Sherri Segundo Performed by: Comment Normal [facility] Comment on above: Result Comment: Joselito Estrada, Surveillance Analyst Performed at: WB Performed By: #### 4 [id number] #### [facility] [address] [place] [address] Dr. Sherri Segundo QC reviewed by: Comment Normal [facility] Comment on above: Result Comment: Oral a Conner, Supervisory Surveillance Analyst (ASCP) Performed at: WB Performed By: #### 4 [id number] #### [facility] [address] [place] [address] Dr. Sherri Segundo Specimen adequacy: Comment Normal [facility] Comment on above: Result Comment: Sati sfactory for evaluation. Endocervical and/or squamous metaplastic cells (endocervical component) are present. Performed at: WB Performed By: #### 4 [id number] #### [facility] [address] [place] [address] Dr. Sherri Segundo CBC AUTO DIFFon 06-27-2022 BASO # 0.1 103/ul Normal 0.0-0.1 [facility] Comment on above: Performed By: #### C BC #### [facility] [address] [place] [address] Dr. Sherir Segundo Basophils/100 WBC (Bld) 1.1 % Normal 0.2-2.0 [facility] Comment on above: Performed By: #### C BC #### [facility] [address] [place] [address] Dr. Sherri Segundo EO # 0.2 103/ul Normal 0.0-0.7 [facility] Comment on above: Performed By: #### C BC #### [facility] [address] [place] [address] Dr. Sherri Segundo Eosinophils/100 WBC (Bld) 4.5 % Normal 0.9-7.0 [facility] Comment on above: Performed By: #### C BC #### [facility] [address] [place] [address] Dr. Sherri Segundo Erythrocyte distribution width (RBC) [Ratio] 11.9 % Normal 11.0-15.0 [facility] Comment on above: Performed By: #### C BC #### [facility] [address] [place] [address] Dr. Sherri Segundo Hematocrit (Bld) [Volume fraction] 40.2 % Normal 36.0-48.0 [facility] Comment on above: Performed By: #### C BC #### [facility] [address] [place] [address] Dr. Sherri Segundo Hemoglobin (Bld) [Mass/Vol] 13.5 g/dL Normal 12.0-16.0 [facility] Comment on above: Performed By: #### C BC #### [facility] [address] [place] [address] Dr. Sherri Segundo IG # 0.01 10e3/ul Normal 0.00-0.03 [facility] Comment on above: Performed By: #### C BC #### [facility] [address] [place] [address] Dr. Sherri Segundo IG % 0.2 % Normal 0.0-0.5 [facility] Comment on above: Performed By: #### C BC #### [facility] [address] [place] [address] Dr. Sherri Segundo LYMPH # 1.6 103/ul Normal 1.2-3.8 [facility] Comment on above: Performed By: #### C BC #### [facility] [address] [place] [address] Dr. Sherri Segundo Lymphocytes/100 WBC (Bld) 35.2 % Normal 20.5-60.0 [facility] Comment on above: Performed By: #### C BC #### [facility] [address] [place] [address] Dr. Sherri Segundo MANUAL DIFF REQ NO Normal [facility] Comment on above: Performed By: #### C BC #### [facility] [address] [place] [address] Dr. Sherri Segundo MCH (RBC) [Entitic mass] 30.6 pg Normal 26.7-34.0 [facility] Comment on above: Performed By: #### C BC #### [facility] [address] [place] [address] Dr. Sherri Segundo MCHC (RBC) [Mass/Vol] 33.6 g/dL Normal 29.9-35.2 [facility] Comment on above: Performed By: #### C BC #### [facility] [address] [place] [address] Dr. Sherri Segundo MCV (RBC) [Entitic vol] 91.2 fL Normal 81.0-99.0 [facility] Comment on above: Performed By: #### C BC #### [facility] [address] [place] [address] Dr. Sherri Segundo MONO # 0.4 103/ul Normal 0.3-0.8 [facility] Comment on above: Performed By: #### C BC #### [facility] [address] [address] [address] Sherri Segundo Monocytes/100 WBC (Bld) 8.4 % Normal 1.7-12.0 [facility] Comment on above: Performed By: #### C BC #### [facility] [address] [place] [address] Dr. Sherri Segundo NEUT # 2.3 103/ul Normal 1.4-6.5 [facility] Comment on above: Performed By: #### C BC #### [facility] [address] [place] [address] Dr. Sherri Segundo Neutrophils/100 WBC (Bld) 50.6 % Normal 43.0-75.0 [facility] Comment on above: Performed By: #### C BC #### [facility] [address] [place] [address] Dr. Sherri Segundo Platelet mean volume (Bld) [Entitic vol] 10.3 fL Normal 9.5-13.5 [facility] Comment on above: Performed By: #### C BC #### [facility] [address] [place] [address] Dr. Sherri Segundo PLT 278 103/ul Normal 150-450 [facility] Comment on above: Performed By: #### C BC #### [facility] [address] [place] [address] Dr. Sherri Segundo RBC 4.41 106/ul Normal 4.20-5.40 [facility] Comment on above: Performed By: #### C BC #### [facility] [address] [place] [address] Dr. Sherri Segundo WBC 4.6 103/ul Normal 4.0-11.0 [facility] Comment on above: Performed By: #### C BC #### [facility] [address] [place] [address] Dr. Sherri Segundo GLYCOHEMOGLOBIN A1Con 2021 ADA RECOMMENDATION SEE BELOW Normal [facility] Comment on above: Result Comment: ADA RECOMMENDED LIMIT 4.0 - 6.0 ADA THERAPEUTIC TARGET < 7.0 ACTION SUGGESTED > 7.0 Performed By: #### A 1C #### [facility] [address] [place] [address] Dr. Sherri Segundo Glucose [Mass/Vol] 100 mg/dL Normal [facility] Comment on above: Performed By: #### A 1C #### [facility] [address] [place] [address] Dr. Sherri Segundo HbA1c (Bld) [Mass fraction] 5.1 % Normal 4.5-6.2 [facility] Comment on above: Performed By: #### A 1C #### [facility] [address] [place] [address] Dr. Sherri Segundo LIPID PROFILEon 06-27-2022 CHOL-HDL RATIO NORM SEE BELOW Normal [facility] Comment on above: Result Comment: 3.3 - 4.4 LOW RISK 4.4 - 7.1 AVERAGE RISK 7.1 - 11.0 MODERATE RISK >11.0 HIGH RISK Performed By: #### 4 [id number] #### [facility] [address] [place] [address] Dr. Sherri Segundo Cholesterol [Mass/Vol] 219 mg/dL Critically high <=200 [facility] Comment on above: Performed By: #### 4 [id number] #### [facility] [address] [address] [address] Sherri Segundo Cholesterol in HDL [Mass/Vol] 86 mg/dL Critically high 40-60 [facility] Comment on above: Performed By: #### 4 [id number] #### [facility] [address] [place] [address] Dr. Sherri Segundo Cholesterol in LDL [Mass/Vol] 120.8 mg/dL Normal [facility] Comment on above: Performed By: #### 4 [id number] #### [facility] [address] [address] [address] Sherri Segundo Cholesterol.total/Ch olesterol in HDL [Mass ratio] 2.5 {ratio} Normal [facility] Comment on above: Performed By: #### 4 [id number] #### [facility] [address] [address] [address] Sherri Segundo HDL NORMAL > or = 60 mg/dl - LOW CARDIOVASCULAR RISK <40 mg/dl - HIGH CARDIOVASCULAR RISK Normal [facility] Comment on above: Performed By: #### 4 [id number] #### [facility] [address] [address] [address] Sherri Segundo LDL CALC NORMAL SEE BELOW Normal [facility] Comment on above: Result Comment: <100 mg/dl OPTIMAL 100 - 129 mg/dl NEAR OR ABOVE OPTIMAL 130 - 159 mg/dl BORDERLINE HIGH 160 - 189 mg/dl HIGH >190 mg/dl VERY HIGH Performed By: #### 4 [id number] #### [facility] [address] [address] [address] Sherri Segundo Triglyceride [Mass/Vol] 61 mg/dL Normal <=150 [facility] Comment on above: Performed By: #### 4 [id number] #### [facility] [address] [address] [address] Sherri Segundo VLDL CALC 12.2 mg/dL Normal [facility] Comment on above: Performed By: #### 4 [id number] #### [facility] [address] [address] [address] Sherri Segundo PROF 14(COMP METB)on 022 Albumin [Mass/Vol] 4.1 g/dL Normal 3.4-5.0 [facility] Comment on above: Performed By: #### 4 [id number] #### [facility] [address] [address] [address] Sherri Segundo Albumin/Globulin [Mass ratio] 1.3 {ratio} Normal [facility] Comment on above: Performed By: #### 4 [id number] #### [facility] [address] [address] [address] Sherri Segundo ALP [Catalytic activity/Vol] 65 U/L Normal 46-116 [facility] Comment on above: Performed By: #### 4 [id number] #### [facility] [address] [address] [address] Sherri Segundo ALT [Catalytic activity/Vol] 14 U/L Normal 14-59 [facility] Comment on above: Performed By: #### 4 [id number] #### [facility] [address] [address] [address] Sherri Segundo Anion gap [Moles/Vol] 11.0 mmol/L Normal [facility] Comment on above: Performed By: #### 4 [id number] #### [facility] [address] [place] [address] Dr. Sherri Segundo AST [Catalytic activity/Vol] 11 U/L Critically low 15-37 [facility] Comment on above: Performed By: #### 4 [id number] #### [facility] [address] [address] [address] Sherri Segundo Bilirubin [Mass/Vol] 0.7 mg/dL Normal 0.2-1.0 [facility] Comment on above: Performed By: #### 4 [id number] #### [facility] [address] [place] [address] Dr. Sherri Segundo Calcium [Mass/Vol] 8.9 mg/dL Normal 8.5-10.1 [facility] Comment on above: Performed By: #### 4 [id number] #### [facility] [address] [address] [address] Sherri Segundo Chloride [Moles/Vol] 101 mmol/L Normal 98-107 [facility] Comment on above: Performed By: #### 4 [id number] #### [facility] [address] [address] [address] Sherri Segundo CO2 [Moles/Vol] 30.9 mmol/L Normal 21.0-32.0 [facility] Comment on above: Performed By: #### 4 [id number] #### [facility] [address] [address] [address] Sherri Segundo Creatinine [Mass/Vol] 0.87 mg/dL Normal 0.55-1.02 [facility] Comment on above: Performed By: #### 4 [id number] #### [facility] [address] [address] [address] Sherri Segundo EGFR-AF MOLDOVAN >60 Normal >=60 [facility] Comment on above: Performed By: #### 4 [id number] #### [facility] [address] [address] [address] Sherri Segundo EGFR-NON AF MOLDOVAN >60 Normal >=60 [facility] Comment on above: Performed By: #### 4 [id number] #### [facility] [address] [place] [address] Dr. Sherri Segundo Globulin (S) [Mass/Vol] 3.2 g/dL Normal [facility] Comment on above: Performed By: #### 4 [id number] #### [facility] [address] [address] [address] Sherri Segundo Glucose [Mass/Vol] 97 mg/dL Normal 74-106 [facility] Comment on above: Performed By: #### 4 [id number] #### [facility] [address] [place] [address] Dr. Sherri Segundo Potassium [Moles/Vol] 3.9 mmol/L Normal 3.5-5.1 [facility] Comment on above: Performed By: #### 4 [id number] #### [facility] [address] [place] [address] Dr. Sherri Segundo Protein [Mass/Vol] 7.3 g/dL Normal 6.4-8.2 [facility] Comment on above: Performed By: #### 4 [id number] #### [facility] [address] [place] [address] Dr. Sherri Segundo Sodium [Moles/Vol] 139 mmol/L Normal 136-145 [facility] Comment on above: Performed By: #### 4 [id number] #### [facility] [address] [place] [address] Dr. Sherri Segundo Urea nitrogen [Mass/Vol] 13.0 mg/dL Normal 7.0-18.0 [facility] Comment on above: Performed By: #### 4 [id number] #### [facility] [address] [address] [address] Sherri Segundo Urea nitrogen/Creatinine [Mass ratio] 14.9 mg/mg Normal [facility] Comment on above: Performed By: #### 4 [id number] #### [facility] [address] [address] [address] Sherri Segundo TSHon 06-27-2022 TSH 3.719 uIU/mL Normal 0.358-3.740 [facility] Comment on above: Performed By: #### 4 [id number] #### [facility] [address] [place] [address] Dr. Sherri Segundo XR HAND RT MIN 3Von 04-23-20 22 XR HAND RT MIN 3V EXAM: XR HAND RT MIN 3V HISTORY: Hand pain and edema COMPARISON: None. TECHNIQUE: 3 views FINDINGS: No osseous lesion, fracture, dislocation or subluxation. Joint spaces are normal. No visualized effusion. No visualized soft tissue edema. IMPRESSION: Normal x-rays Electronically authenticated by: GE GONZALES Date: 2022-04-23 21:58 Normal [facility] Vital Signs Date Time Vital Sign Value Performing Clinician Facility 11-02-2022 17:30-0500 Body height 154.94 cm Jennifer Rodrigues Other [facility] Other 11-02-2022 17:30-0500 Body mass index (BMI) [Ratio] 24.56 kg/m2 Jennifer Rodrigues Other [facility] Other 11-02-2022 17:30-0500 Body temperature 98.2 [degF] Jennifer Rodrigues Other [facility] Other 11-02-2022 17:30-0500 Body weight 58.97 kg Jennifer Rodrigues Other [facility] Other 11-02-2022 17:30-0500 Respiratory rate 18 /min Jennifer Ravi Other [facility] Other 11-02-2022 17:30-0500 SaO2% (BldA) [Mass fraction] 98 % Jennifer Rodrigues Other [facility] Other Encounters Encounter Date Encounter Type Care [...] 11-02-2022 End: 11-02-2022 ambulatory Jennifer Rodrigues Other [facility] Other Start: 11-02-2022 Office outpatient vi sit 25 minutes Jennifer Rodrigues [facility] Start: 09-05-2022 End: 09-05-[address] MIGUEL MORRISON . Facility:[facility] Start: 06-29-2022 Encounter for genera l adult medical examination without abnormal findings DR YARED RAMIREZ . [facility] Start: 06-27-2022 End: 06-28-[address] YARED RAMIREZ . Facility:[facility] Start: 06-27-2022 End: 06-28-2022 Encounter for general adult medical examination without abnormal findings DR YARED RAMIREZ . Facility:[facility] Start: 04-23-2022 End: 04-24-2022 ambulatory ABDOULAYE CHACKO Facility:[facility] Payers Date Payer Category Payer Unknown [id number] 2019 Unknown [id number] 2. [id number] 1985 Unknown [id number] 2.16.84 [id number] 1985 Unknown [id number] 2.16.84 [id number] 1985 Unknown [id number] 2.16.84 [id number] 1985 Unknown [id number] 2.16.84 [id number] 1985 Unknown [id number] 2.16.84 [id number] 1985 Unknown [id number] 2.16.84 [id number] 1985 Unknown [id number] 2.16.84 [id number] 1985 Unknown [id number] 2.16.84 [id number] 1985 Unknown [id number] 2.16.84 [id number] Social History Date Type Detail Facility Sex Assigned At [facility] Other Evaluation note 11-02-2022 Note Date & [...] primary care provider to discuss antibiotic therapy [facility] Other History general Narrative - Reported Note Date & Type Note Facility History general Narrative - Reported Type Medical History Hypothyroidism [facility] Other Summary Purpose Family History No Family History Records FoundNo Family History Records Found Advance Directives No Advanced Directives Records FoundNo Advanced Directives Records Found Additional Source Comments REASON FOR VISIT (unrecogniz ed section and content) H/A, COUGH, CONGESTION INFORMATION SOURCE (unrecogn ized section and content) DATE CREATED AUTHOR 01/04/2023 [facility] DATE CREATED AUTHOR AUTHOR'S ORGANIZ ATION 04/11/2024 [facility] FOR RECORDS PERTAINING TO PATIENTS WHO ARE [...] BE BASED ON THE PRIMARY CLINICAL RECORDS. [employer] provides no warranty or guarantee of the accuracy or completeness of information in this document.
[2024-07-22 09:35] LABS: Basophils Percent Auto 0.7 % (0.2-2.0); Eosinophils Absolute Auto 0.2 10^3/uL (0.0-0.7); Eosinophils Percent Auto 4.4 % (0.9-7.0); Hematocrit 37.3 % (36.0-48.0); Hemoglobin 12.4 g/dL (12.0-16.0); Immature Granulocytes Abs Auto 0.01 10^3/uL (0.00-0.03); Immature Granulocytes Pct Auto 0.2 % (0.0-0.5); Lymphocytes Absolute Auto 1.3 10^3/uL (1.2-3.8); Lymphocytes Percent Auto 28.2 % (20.5-60.0); Mean Corpuscular HGB Conc 33.2 g/dL (29.9-35.2); Mean Corpuscular Hemoglobin 30.1 pg (26.7-34.0); Mean Corpuscular Volume 90.5 fL (81.0-99.0); Mean Platelet Volume 11.1 fL (9.5-13.5); Monocytes Absolute Auto 0.4 10^3/uL (0.3-0.8); Monocytes Percent Auto 9.6 % (1.7-12.0); Neutrophils Absolute Auto 2.6 10^3/uL (1.4-6.5); Neutrophils Percent Auto 56.9 % (43.0-75.0); Platelet Count 265 10^3/uL (150-450); Red Blood Count 4.12 10^6/uL (4.20-5.40); Red Cell Distribution Width 11.8 % (11.0-15.0); White Blood Count 4.5 10^3/uL (4.0-11.0)
[2024-07-22 10:02] LABS: Estimated Average Glucose 103 mg/dL; Glycohemoglobin A1C 5.2 % (4.5-6.2)
[2024-07-22 10:39] LABS: Alanine Aminotransferase 15 U/L (14-59); Albumin Globulin Ratio 1.2; Albumin Level 3.6 g/dL (3.4-5.0); Alkaline Phosphatase 57 U/L (46-116); Anion Gap 10.6; Aspartate Amino Transferase 10 U/L (15-37); BUN Creatinine Ratio 13.2; Bilirubin Total 0.4 mg/dL (0.2-1.0); Calcium 8.7 mg/dL (8.5-10.1); Carbon Dioxide 26.7 mmol/L (21.0-32.0); Chloride 107 mmol/L (98-107); Chol HDL Ratio 2.7; Cholesterol 184 mg/dL (<=200); Estimated GFR (African America >60 (>=60); Estimated GFR (Non-African Ame >60 (>=60); Globulin 3.1 g/dL; Glucose 93 mg/dL (74-106); HDL Cholesterol 69 mg/dL (40-60); Potassium 4.3 mmol/L (3.5-5.1); Sodium 140 mmol/L (136-145); Thyroid Stimulating Hormone 0.172 uIU/mL (0.358-3.740); Total Protein 6.7 g/dL (6.4-8.2); Triglycerides 64 mg/dL (<=150); VLDL CHOLESTEROL 12.8 mg/dL
== END 2024-07-22 09:00 | disposition home or self-care (01) ==
PROVIDERS: PCP Family Medicine; Visit Provider Family Medicine
DX: Z00.00 Encounter for general adult medical examination without abnormal findings (principal)
CPT/HCPCS: 36415; 80053; 80061; 83036; 84443; 85025

== ENCOUNTER 2025-06-05 09:58 | Outpatient (OUT) | payer BC, SELFPAY ==
--- NOTE | 2025-06-05 10:04 | MM_ITS ---
Patient Name: MIRTA PORRAS MR#: [id number] : 1985 Exam Date: 06/05/2025 Ordering Doctor: DR MIGUEL LAMAR . RADIOLOGY REPORT PROCEDURE: MM TOMOSYNTHESIS SCREENING BI COMPARISON: MM TOMOSYNTHESIS SCREENING BI, 06/02/2024. MM TOMOSYNTHESIS DIAGNOSTIC LT, 06/25/2023. MG MAMM DIAGNOSTIC 3D JORDON CAD, 11/28/2022. INDICATIONS: Screening for malignant neoplasm Calculator Name NCI Breast Cancer Risk Assessment Tool 5 Year Breast Cancer Risk Not Reported. Lifetime Breast Cancer Risk Not Reported. Personal Breast Cancer No Personal Ovarian Cancer No Treatments None Family Cancers None LOCATION: [facility] BREAST COMPOSITION: The breasts are heterogeneously dense, which may obscure small masses. FINDINGS: DIAGNOSTIC CATEGORY 1--NEGATIVE. RIGHT BREAST: No significant suspicious finding. LEFT BREAST: No significant suspicious finding. RECOMMENDATIONS: ROUTINE MAMMOGRAM AND CLINICAL EVALUATION IN 12 MONTHS. PLEASE NOTE: A NORMAL MAMMOGRAM DOES NOT EXCLUDE THE POSSIBILITY OF BREAST CANCER. A CLINICALLY SUSPICIOUS PALPABLE LUMP SHOULD BE BIOPSIED. Dictated by: Mc Kaiser DO on 06/05/2025 at 15:49 Approved by: Mc Kaiser DO on 06/05/2025 at 15:51
== END 2025-06-05 09:59 | disposition home or self-care (01) ==
PROVIDERS: PCP Family Medicine; Visit Provider Obstetrics & Gynecology
DX: Z12.31 Encounter for screening mammogram for malignant neoplasm of breast (principal)
CPT/HCPCS: 77063; 77067

== ENCOUNTER 2025-10-21 20:02 | Outpatient (REF) | payer BC, SELFPAY ==
--- OUTSIDE RECORDS SUMMARY | 2025-10-21 13:00 | XMS_ITS | Encounter Summary ---
Author Organization [facility] Address [address] [place] [address] Care Team Providers Care Film Color Tester Name Role Phone Unavailable Primary Care Provider Unavailabl e Reason for Visit * ReasonCommentsWell Women Visit Encounter Details DateTypeDepartmentCare Team (Latest Contact Info)Pzlzfqrymdy81/17/2025 1:00 PM ESTProcedure Visit [facility] [place] [facility] [address] [facility] [facility] [phone] Maida Jang PA [address] [facility] [address] [facility] [place] [address] Well woman exam with routine gynecological exam; Breast cancer screening by mammogram Social History Tobacco UseTypesPacks/DayYears UsedDateSmoking Tobacco: FormerCigarettes0.510 Smokeless Tobacco: NeverAlcohol UseStandard Drinks/WeekCommentsYes4 (1 standard drink = 0.6 oz pure alcohol)CommentsNoSex and Gender InformationValue Date RecordedSex Assigned at JzzbyExgpsy59/30/2024 8:54 AM EDTLegal SexFemale 01/17/2023 7:16 PM EDTGender AxakxghyWuisrb10/30/2024 8:54 AM EDTSexual VkhxvayvommLtaahlyh01/30/2024 8:54 AM EDTdocumented as of this encounter Last Filed Vital Signs Vital SignReadingTime TakenCommentsBlood Vbjknhve890/7410/21/2025 1:16 PM EST Pulse--Temperature--Respiratory Rate--Oxygen Saturation--Inhaled Oxygen Concentration--Oszmwo48.6 kg (146 lb 12.8 oz)10/21/2025 1:16 PM ESTHeight--Body Mass Index26.8506 12:13 PM EDTdocumented in this encounter Progress Notes * CHAPARRO Clemente - 10/21/2025 1:00 PM EST Reason for Appointment: Patient ID: Mairlee Ferrell is a 40 y.o. female who presents for Well Women Visit Patient presents today for Annual Exam. MEDICATIONS Current Outpatient Medications Medication Instructions ??? Imitrex 100 mg, Every 12 hours ??? levothyroxine (SYNTHROID, LEVOXYL) 125 mcg, Oral, Every 24 hours ALLERGIES Allergies[1] PROBLEMS Active Ambulatory Problems Diagnosis Date Noted ??? No Active Ambulatory Problems Resolved Ambulatory Problems Diagnosis Date Noted ??? No Resolved Ambulatory Problems Past Medical History: Diagnosis Date ??? Abnormal Pap smear of cervix ??? Breast mass Nov 2022 ??? Disease of thyroid gland 2011 ??? Hypothyroidism 2011 HISTORY PAST MEDICAL HISTORY SOCIAL HISTORY Medical History[2] Social History Tobacco Use ??? Smoking status: Former Current packs/day: 0.50 Average packs/day: 0.5 packs/day for 10.0 years (5.0 ttl pk-yrs) Types: Cigarettes ??? Smokeless tobacco: Never Substance Use Topics ??? Alcohol use: Yes Alcohol/week: 4.0 standard drinks of alcohol Types: 4 Glasses of wine per week ??? Drug use: Never FAMILY HISTORY Family History[3] SURGICAL HISTORY Surgical History[4] REVIEW OF SYSTEMS Review of Systems: Review of Systems All other systems reviewed and are negative. OBJECTIVE Objective: Physical Exam Constitutional: Appearance: Normal appearance. She is well-developed. Genitourinary: Vulva normal. Right Adnexa: not tender and no mass present. Left Adnexa: not tender and no mass present. No cervical discharge. Breasts: Breasts are soft. Right: Normal. Left: Normal. HENT: Head: Normocephalic. Nose: Nose normal. Mouth/Throat: Mouth: Mucous membranes are moist. Cardiovascular: Rate and Rhythm: Normal rate and regular rhythm. Pulmonary: Effort: Pulmonary effort is normal. Breath sounds: Normal breath sounds. Abdominal: General: Bowel sounds are normal. There is no distension. Palpations: Abdomen is soft. Tenderness: There is no abdominal tenderness. There is no guarding or rebound. Musculoskeletal: General: No swelling. Normal range of motion. Cervical back: Normal range of motion. Right lower leg: No edema. Left lower leg: No edema. Neurological: General: No focal deficit present. Mental Status: She is alert and oriented to person, place, and time. Skin: General: Skin is warm and dry. Psychiatric: Mood and Affect: Mood normal. Behavior: Behavior normal. Vitals and nursing note reviewed. Exam conducted with a lead teller present. Vitals: Estimated body mass index is 26.85 kg/m?? as calculated from the following: Height as of 04/10/24: 5' 2 . Weight as of this encounter: 146 lb 12.8 oz. BP: 112/74 No LMP recorded. Assessment/Plan ICD-10-CM 1. Well woman exam with routine gynecological exam Z01.419 THIN PREP TIS PAP AND HR HPV DNA 2. Breast cancer screening by mammogram Z12.31 Bilateral screening mammogram Bilateral screening mammogram Assessment/Plan Annual Exam: Patient presents today for an annual exam. Patient states she is doing well and has no complaints. Pap was obtained without difficulty. Orders Placed This Encounter Procedures ??? Bilateral screening mammogram Follow Up: Patient is to return in one year for annual unless needed otherwise. Documented by Carmelita Louise LPN on behalf of: CHAPARRO Clemente [1] Allergies Allergen Reactions ??? Sulfa Antibiotics Other Reaction(s): hives [2] Past Medical History: Diagnosis Date ??? Abnormal Pap smear of cervix ??? Breast mass Nov 2022 ??? Disease of thyroid gland 2011 ??? Hypothyroidism 2011 [3] Family History Problem Relation Name Age of Onset ??? Cancer Mother Bre ??? Migraines Mother Bre ??? Hyperlipidemia Father Sailaja ??? Hypertension Father Sailaja ??? Diabetes Maternal Grandfather Christopher ??? Stroke Maternal Grandfather Christopher ??? Thyroid disease Paternal Grandmother Farida [4] Past Surgical History: Procedure Laterality Date ??? BREAST BIOPSY ??? CERVICAL BIOPSY W/ LOOP ELECTRODE EXCISION ??? DILATION AND CURETTAGE OF UTERUS 12/2012 documented in this encounter Plan of Treatment DateTypeDepartmentCare Team (Latest Contact Info)Rmoupajxtnj84/21/2026 1:00 PM ESTProcedure Visit [facility] [place] [facility] [address] [facility] [place] [address] Travis Morrison DO [address] [facility] [place] [address] NameTypePriorityAssociated DiagnosesOrder ScheduleBilateral screening mammogram ImagingRoutine Breast cancer screening by mammogram Expected: 10/21/2025 (Approximate), Expires: 12/22/2026THIN PREP TIS PAP AND HR HPV DNAPathology and CytologyRoutine Well woman exam with routine gynecological exam Ordered: 10/21/2025documented as of this encounter Procedures Procedure NamePriorityDate/TimeAssociated DiagnosisCommentsHPV/PAP COTEST, WTPJFAJMTgslkdc82/06/2024 12:00 AM EDTdocumented in this encounter Results * HPV/PAP COTEST, EXTERNAL (04/10/2024 12:00 AM EDT) Narrative Authorizing ProviderResult TypeResult StatusCorey Prince DOLAB CYTOLOGY ORDERABLESFinal ResultPerforming OrganizationAddressCity/State/ZIP CodePhone Number EXTERNAL LAB documented in this encounter Visit Diagnoses Diagnosis Well woman exam with routine gynecological exam Routine gynecological examination Breast cancer screening by mammogram documented in this encounter
--- OUTSIDE RECORDS SUMMARY | 2025-10-21 20:08 | XMS_ITS | Encounter Summary ---
Author Organization [facility] Address [address] [place] [address] Care Team Providers Care Pondman Name Role Phone Unavailable Primary Care Provider Unavailabl e Encounter Details DateTypeDepartmentCare Team (Latest Contact Info)Xxpjjfpviuz07/17/2025amboo flowsheet [facility] [address] [place] [address] Maida Jang PA [address] [facility] [address] [place], [facility] Social History Tobacco UseTypesPacks/DayYears UsedDateSmoking Tobacco: FormerCigarettes0.510 Smokeless Tobacco: NeverAlcohol UseStandard Drinks/WeekCommentsYes4 (1 standard drink = 0.6 oz pure alcohol)CommentsNoSex and Gender InformationValue Date RecordedSex Assigned at VhbtpRxwlvw02/30/2024 8:54 AM EDTLegal SexFemale 01/17/2023 7:16 PM EDTGender XpaepuniAkchvq95/30/2024 8:54 AM EDTSexual FsiqddcszhfZlpjardc81/30/2024 8:54 AM EDTdocumented as of this encounter Plan of Treatment DateTypeDepartmentCare Team (Latest Contact Info)Wmwwqocceko41/21/2026 1:00 PM ESTProcedure Visit [facility] [place] [facility] [address] [facility] [place] [address] Prince, Travis, [address] [place] [address] documented as of this encounter Visit Diagnoses Not on filedocumented in this encounter
--- OUTSIDE RECORDS SUMMARY | 2025-10-21 20:08 | XMS_ITS | Clinical Summary ---
Author Organization [facility] Address [address] [place] [address] Care Team Providers Care Director Of In Service Education Name Role Phone Unavailable Primary Care Provider Unavailabl e Allergies Active AllergyReactionsCriticalityNoted DateCommentsSulfa Fbyizjcunrf32/30/2024 Other Reaction(s): hives Medications MedicationSigDispense QuantityRefillsLast FilledStart DateEnd DateStatus levothyroxine (Synthroid, Levoxyl) 125 MCG tablet Take 125 mcg by mouth 1 (one) time each day at the same timeActive Imitrex 100 MG tablet 100 mg every 12 (twelve) hours04/17/2023ctive azithromycin (Zithromax Z-Ayush) 250 MG tablet Indications:Bacterial infectionAs directed 6 tablet Discontinued(Other) Encounters DateTypeDepartmentCare PygxBfmcxnftcly53/17/2025 1:00 PM ESTProcedure Visit [facility] [place] [facility] [address] [facility] [place] [address] Maida Jang PA Well woman exam with routine gynecological exam; Breast cancer screening by yqijddfws86/17/2025amboo flowsheet [facility] [address] [place] [address] Maida Jagn PA 10/14/2025Travelfrom Last 3 Months Family History Medical HistoryRelationNameCommentsHyperlipidemiaFatherKimHypertensionFatherKim DiabetesMaternal GrandfatherRichardStrokeMaternal GrandfatherRichardCancerMother TonyaMigrainesMotherTonyaThyroid diseasePaternal GrandmotherAnnRelationName StatusCommentsFatherKimMaternal GrandfatherRichardMotherTonyaPaternal GrandmotherAnn Social History Tobacco UseTypesPacks/DayYears UsedDateSmoking Tobacco: FormerCigarettes0.510 Smokeless Tobacco: Never Tobacco Cessation:Counseling Given: Not Answered Alcohol UseStandard Drinks/WeekCommentsYes4 (1 standard drink = 0.6 oz pure alcohol)CommentsNoSex and Gender InformationValueDate RecordedSex Assigned at HdihfGpdlan95/30/2024 8:54 AM EDTLegal BwpBslomm18/15/2023 7:16 PM EDTGender ZasfdkguUrcamk40/30/2024 8:54 AM EDTSexual OrientationStraight 04/03/2024 8:54 AM EDT Last Filed Vital Signs Vital SignReadingTime TakenCommentsBlood Hgqkqcrz715/7410/21/2025 1:16 PM EST Pulse--Temperature--Respiratory Rate--Oxygen Saturation--Inhaled Oxygen Concentration--Jgbvfr24.6 kg (146 lb 12.8 oz)10/21/2025 1:16 PM PHXGjnkdh245.5 cm (5' 2 )04/10/2024 12:13 PM EDTBody Mass Index26.85004/10/2024 12:13 PM EDT Plan of Treatment DateTypeDepartmentCare Team (Latest Contact Info)Vggazdsrbgg53/21/2026 1:00 PM ESTProcedure Visit [facility] [place] [facility] [address] [facility] [place] [address] Travis Morrison DO [address] [facility] [place] [address] Insurance
--- OUTSIDE RECORDS SUMMARY | 2025-10-21 20:08 | XMS_ITS | Encounter Summary ---
Author Organization [facility] Address [address] [place] [address] Care Team Providers Care Manager Fine Name Role Phone Unavailable Primary Care Provider Unavailabl e Encounter Details DateTypeDepartmentCare Team (Latest Contact Info)Efcgxnibfib92/10/2025Travel Social History Tobacco UseTypesPacks/DayYears UsedDateSmoking Tobacco: FormerCigarettes0.510 Smokeless Tobacco: NeverAlcohol UseStandard Drinks/WeekCommentsYes4 (1 standard drink = 0.6 oz pure alcohol)CommentsNoSex and Gender InformationValue Date RecordedSex Assigned at YsgsiMiiodd17/30/2024 8:54 AM EDTLegal SexFemale 01/17/2023 7:16 PM EDTGender UkwlemfuQkryxn12/30/2024 8:54 AM EDTSexual PkkdwpszlecTonqextg59/30/2024 8:54 AM EDTdocumented as of this encounter Plan of Treatment DateTypeDepartmentCare Team (Latest Contact Info)Llbistuzlal96/21/2026 1:00 PM ESTProcedure Visit [facility] [place] [facility] [address] [facility] [place] [address] Travis Morrison DO [address] [facility] [place] [address] documented as of this encounter Visit Diagnoses Not on filedocumented in this encounter
--- OUTSIDE RECORDS SUMMARY | 2025-10-21 20:08 | XMS_ITS | Patient Health Record ---
Author Organization [facility] in [place] Address [address] [place] [address] Care Team Providers Care Correctional Case Manager Name Role Phone Sree Tompkins Primary Care Provider Allergies Allergen (clinical drug ingredient) Drug/Non Drug Allergy documented on EMR Reaction Allergy Type Onset Date Status Substance with sulfonamide s tructure and antibacterial mechanism of action (substance) Sulfa Antibiotics hives Drug Allergy Active Results Component Value Reference Range Notes CBC AUTO DIFF Reviewed date:08/23/2025 11:31:18 AM Interpretation: Performing Lab: Notes/Report: [facility] , White Blood Count 5.2 4.0-11.0 10 3/uL Red Blood Count4.444.20-5.40 10 6/rIJrukapwfff54.512.0-16.0 g/lGUmmawgjmxv36.5 36.0-48.0 %Mean Corpuscular Kscxdz16.281.0-99.0 fLMean Corpuscular Hemoglobin 30.426.7-34.0 pgMean Corpuscular HGB Conc33.329.9-35.2 g/dLRed Cell Distribution Width11.711.0-15.0 %Platelet Mpede648334-977 10 3/uLMean Platelet Zuymmc57.79.5- 13.5 fLNeutrophils Percent Auto50.243.0-75.0 %Lymphocytes Percent Auto32.620.5- 60.0 %Monocytes Percent Auto10.21.7-12.0 %Eosinophils Percent Auto5.60.9-7.0 % Basophils Percent Auto1.20.2-2.0 %Immature Granulocytes Pct Auto0.20.0-0.5 % Neutrophils Absolute Auto2.61.4-6.5 10 3/uLLymphocytes Absolute Auto1.71.2-3.8 10 3/uLMonocytes Absolute Auto0.50.3-0.8 10 3/uLEosinophils Absolute Auto0.30.0- 0.7 10 3/uLBasophils Absolute Auto0.10.0-0.1 10 3/uLImmature Granulocytes Abs Auto0.010.00-0.03 10 3/uLPerforming Lab:see noteML - [facility] LB LIPID PROFILE Reviewed date:08/23/2025 11:31:18 AM Interpretation: Performing Lab: Notes/Report: [facility] ,Egagiqrngdpvy82<=150 mg/gSBpfsdeoiyrf779<=200 mg/dLHDL Vaquzivwmtr7271-27 mg/dL > or =60 mg/dl - LOW CARDIOVASCULAR RISK <40 mg/dl - HIGH CARDIOVASCULAR RISK LDL Cholesterol Zfbnfgebyx723.0 <100 mg/dl OPTIMAL 100-129 mg/dl NEAR OR ABOVE OPTIMAL 130-159 mg/dl BORDERLINE HIGH 160-189 mg/dl HIGH >190 mg/dl VERY HIGH VLDL GADTVZAWVLO45.4Chol HDL Ratio3.1 3.3 - 4.4 LOW RISK 4.4 - 7.1 AVERAGE RISK 7.1 - 11.0 MODERATE RISK >11.0 HIGH RISK Performing Lab:see noteML - [facility] LBPROF 14(COMP METB) Reviewed date:08/23/2025 11:31:18 AM Interpretation: Performing Lab: Notes/Report: [facility] ,Hyqbhu906364-889 mmol/LPotassium4.23.5-5.1 mmol/KRpwzeycf01776-097 mmol/LCarbon Vxnuece39.821.0-32.0 mmol/LAnion Gap6.1Ohylpbi1135-459 mg/dLBlood Urea Nitrogen 13.07.0-18.0 mg/dLCreatinine0.810.55-1.02 mg/dLEstimated GFR ( Arminda>60 >=60 mL/min/1.73m 2Estimated GFR (Non- Maria G>60>=60 mL/min/1.73m 2BUN Creatinine Ratio16.3Ccvdbjh3.08.5-10.1 mg/dLBilirubin Total0.40.2-1.0 mg/dL Aspartate Amino Czbwwuhwqyh4301-07 U/LAlanine Fhflcnskamcxpywd8894-87 U/L Alkaline Tfceolrfqxw0863-655 U/LTotal Protein7.36.4-8.2 g/dLAlbumin Level3.83.4- 5.0 g/dLGlobulin3.5Albumin Globulin Ratio1.1Performing Lab:see noteML - [facility] LBMM tomosynthesis screening BI Reviewed date:06/07/2025 08:00:08 PM Interpretation: Performing Lab: Notes/Report: Source Facility: [place] [address] Mammography Report Signed Patient: MARILEE PORRAS MR#: [id number] : 1985 Acct:[id number] Age/Sex: 40 / F ADM Date: 06/05/25 Loc: MAMMO Attending Dr: Miguel Morrison D.O. Ordering Physician: Miguel Morrison D.O. Results: Date of Service: 06/05/25 Follow Up: Procedure(s): MM tomosynthesis screening BI Accession Number(s): [id number] cc: Miguel Morrison D.O.; Frederick Tompkins M.D. Patient Name: MARILEE PORRAS MR#: [id number] : 1985 Exam Date: 06/05/2025 Ordering Doctor: DR MIGUEL MORRISON . RADIOLOGY REPORT PROCEDURE: MM TOMOSYNTHESIS SCREENING BI COMPARISON: MM TOMOSYNTHESIS SCREENING BI, 06/02/2024. MM TOMOSYNTHESIS DIAGNOSTIC LT, 06/25/2023. MG MAMM DIAGNOSTIC 3D JORDON CAD, 11/28/2022. INDICATIONS: Screening for malignant neoplasm Calculator Name NCI Breast Cancer Risk Assessment Tool 5 Year Breast Cancer Risk Not Reported. Lifetime Breast Cancer Risk Not Reported. Personal Breast Cancer No Personal Ovarian Cancer No Treatments None Family Cancers None LOCATION: [facility] BREAST COMPOSITION: The breasts are heterogeneously dense, which may obscure small masses. FINDINGS: DIAGNOSTIC CATEGORY 1--NEGATIVE. RIGHT BREAST: No significant suspicious finding. LEFT BREAST: No significant suspicious finding. RECOMMENDATIONS: ROUTINE MAMMOGRAM AND CLINICAL EVALUATION IN 12 MONTHS. PLEASE NOTE: A NORMAL MAMMOGRAM DOES NOT EXCLUDE THE POSSIBILITY OF BREAST CANCER. A CLINICALLY SUSPICIOUS PALPABLE LUMP SHOULD BE BIOPSIED. Dictated by: Mc Kaiser DO on 06/05/2025 at 15:49 Approved by: Mc Kaiser DO on 06/05/2025 at 15:51 Dictated By: Mc Kaiser M.D. Signed By: 06/05/25 1552 DD/ 1551 TD/TT: Thinner Sprayer: Reason For Referral No Information Medications Medication SIG (Take, Route, Frequency, Duration) Notes Start Date End Date Status Levothyroxine Sodium 125 MCG TAKE 1 TABL ET BY MOUTH ONCE DAILY IN THE MORNING ON AN EMPTY STOMACH; Duration: 90 days ActiveSUMAtriptan Succinate 100 mgTAKE 1 TABLET BY MOUTH TWICE DAILY NEEDED *wait at least 2 (TWO) hours between doses* TEN tabs to last FOR 10 DAYS; Duration: 10Active Social History Tobacco Use: Social History Observation Description Date Details (start date - stop date) Never Smoker NA - NA Tobacco Use/Smoking Question Answer Notes Patient is a nonsmoker Alcohol Screen (Audit-C) Question Answer Notes Did you have a drink containing alcohol in the p ast year? Yes How often did you have 6 or more drinks on one occasion in the past year?Two to three times per week (3 points)How many drinks did you have on a typical day when you were drinking in the past year?1 or 2 drinks (0 point)How often did you have a drink containing alcohol in the past year?Monthly (2 points)Points5 InterpretationPositiveAUDIT-C (Standard) Question Answer Notes Did you have a drink containing alcohol in the p ast year? Yes How often did you have a drink containing alcohol in the past year?2 to 4 times a month (2 points)How many drinks did you have on a typical day when you were drinking in the past year?3 or 4 drinks (1 point)How often did you have six or more drinks on one occasion in the past year?Never (0 point)Points3 InterpretationPositive Problems Problem Type SNOMED Code ICD Code Onset Dates Problem Status W/U Status Risk Notes Problem Migraine (84146502) Migraine (G43.909) ActiveconfirmedProblemWell adult (325973741)Well adult (Z00.00)Activeconfirmed ProblemCluster headache (300887744)Cluster headache (G44.009)Activeconfirmed Vital Signs Blood pressure diastolic 82 mm Hg 08/27/2025 Vuqcse09 in08/27/2025lood pressure hxtufcek217 mm Hg08/27/20254667Qlidoe660.0 lbs 08/27/2025BMI26.88 kg/m208/27/2025 Encounters Encounter Location Date Provider Diagnosis [facility] [address] [place] [address] 05/25/2025 Sree Tompkins Migraine G43.909 [facility] [address] [facility] [place] [address] 05/25/2025 Sree Ortegay [facility] [place] [place] [address] 06/05/2025Doug [facility] [facility] [place] [address]/Doug [facility] [facility] [place] [address]/Doug HoyCluster headache G44.009[facility] [facility] [place] [address]/ Sree Frances adult Z00.00 Assessments Encounter Date Diagnosis (ICD Code) Assessment Notes Treatment Notes Treatment Clinical Notes Section Notes 11/19/2024 Cluster headache (ICD-10 - G44.0 09) 08/27/2025Well adult (ICD-10 - Z00.00)Check on on apxgodu8205/25/2025Migraine (ICD-10 - G43.909) Plan Of Treatment Pending Test Test Name Order Date CMP (COMPLETE METABOLIC PANEL) 3 HEMOGLOBIN A1C (GLYCO) 11/19/2024 HEMOGLOBIN A1C (GLYCO) 04/17/2023 IRON, TOTAL 11/19/2024 LIPID PANEL (CHOL/TRIG/HDL/LDL) 04/17/20 23 CBC WITH DIFF (EXP 09/2025) 04/17/2023 CBC WITH DIFF (EXP 09/2025) 11/19/2024 VITAMIN D, 25 LEVEL (TOTAL) 11/19/2024 MRI Brain w/o contrast 04/17/2023 Insulin Level 11/19/2024 TSH 04/17/2023 THYROID PANEL (T4/TSH/FREE T3) THYROID PANEL (T4/TSH/FREE T3) CMP (COMP MET BAI) w/eGFR CKD-EPI 2024 Insurance Providers Payer Name Payer Address Payer Phone Subscriber Number Group Number Insured Name Patient Relationship to Insured Coverage Start Date Coverage End Date [employer] [address] [place] [id number] Marilee Porras Self - patient is the insured Medical (General) History Medical History History ICD Code Mass of neck R22.1 Sigmoid diverticulosis K57.30 Gastroenteritis K52.9 Hypothyroidism E03.9 Eczema L30.9 Hypercholesteremia E78.00 Carpal tunnel syndrome G56.00 Alopecia L65.9 Surgical History Surgery Date(Month/Year) D & C
== END 2025-10-21 20:03 | disposition home or self-care (01) ==
LOC: LAB 20:02
PROVIDERS: PCP Family Medicine; Visit Provider Physician Assistant
DX: Z01.419 Encounter for gynecological examination (general) (routine) without abnormal findings (principal)
CPT/HCPCS: 88175

== ENCOUNTER 2025-11-03 13:04 | Outpatient (OUT) | payer BC, SELFPAY ==
--- OUTSIDE RECORDS SUMMARY | 2025-10-21 13:00 | XMS_ITS | Encounter Summary ---
Author Organization [facility] Address [address] [place] [address] Care Team Providers Care Jewel Bearing Driller Name Role Phone Unavailable Primary Care Provider Unavailabl e Reason for Visit * ReasonCommentsWell Women Visit Encounter Details DateTypeDepartmentCare Team (Latest Contact Info)Fnxgotysuef52/17/2025 1:00 PM ESTProcedure Visit [facility] [place] [facility] [address] [place] [phone] Maida Jang PA [address] [facility] [place] [address] Well woman exam with routine gynecological exam; Breast cancer screening by mammogram Social History Tobacco UseTypesPacks/DayYears UsedDateSmoking Tobacco: FormerCigarettes0.510 Smokeless Tobacco: NeverAlcohol UseStandard Drinks/WeekCommentsYes4 (1 standard drink = 0.6 oz pure alcohol)CommentsNoSex and Gender InformationValue Date RecordedSex Assigned at WctvkPpnnft48/30/2024 8:54 AM EDTLegal SexFemale 01/17/2023 7:16 PM EDTGender NqncfatzVtgudw12/30/2024 8:54 AM EDTSexual EgikplpnhzbVgveanup68/30/2024 8:54 AM EDTdocumented as of this encounter Last Filed Vital Signs Vital SignReadingTime TakenCommentsBlood Lprmyhik410/7410/21/2025 1:16 PM EST Pulse--Temperature--Respiratory Rate--Oxygen Saturation--Inhaled Oxygen Concentration--Imduft31.6 kg (146 lb 12.8 oz)10/21/2025 1:16 PM ESTHeight--Body Mass Index26.8506 12:13 PM EDTdocumented in this encounter Progress Notes * CHAPARRO Clemente - 10/21/2025 1:00 PM EST Reason for Appointment: Patient ID: Marilee Ferrell is a 40 y.o. female who [...] nursing note reviewed. Exam conducted with a stiff straw hat washer present. Vitals: Estimated body mass index is [...] Plan of Treatment DateTypeDepartmentCare Team (Latest Contact Info)Osgofaqrqgn14/21/2026 1:00 PM ESTProcedure Visit [facility] [place] [facility] [address] [place] [address] Travis Morrison DO [address] [facility] [place] [address] NameTypePriorityAssociated DiagnosesOrder ScheduleBilateral screening mammogram ImagingRoutine Breast cancer screening by mammogram Expected: 10/21/2025 (Approximate), Expires: 12/22/2026THIN PREP TIS PAP AND HR HPV DNAPathology and CytologyRoutine Well woman exam with routine gynecological exam Ordered: 10/21/2025documented as of this encounter Procedures Procedure NamePriorityDate/TimeAssociated DiagnosisCommentsHPV/PAP COTEST, WFBYKIKCSklxzzs30/06/2024 12:00 AM EDTdocumented in this encounter Results * HPV/PAP COTEST, EXTERNAL (04/10/2024 12:00 AM EDT) Narrative Authorizing ProviderResult TypeResult StatusCorey Prince DOLAB CYTOLOGY ORDERABLESFinal ResultPerforming OrganizationAddressCity/State/ZIP CodePhone Number EXTERNAL LAB documented in this encounter Visit Diagnoses Diagnosis Well woman exam with routine gynecological exam Routine gynecological examination Breast cancer screening by mammogram documented in this encounter
--- OUTSIDE RECORDS SUMMARY | 2025-11-03 13:07 | XMS_ITS | Encounter Summary ---
Author Organization [facility] Address [address] [place] [address] Care Team Providers Care Doormaker Name Role Phone Unavailable Primary Care Provider Unavailabl e Encounter Details DateTypeDepartmentCare Team (Latest Contact Info)Hlxggbqxkug93/17/2025amboo flowsheet [facility] [address] [place] [address] Maida Jang PA [address] [facility] [address] [facility] [address] [place], [facility] Social History Tobacco UseTypesPacks/DayYears UsedDateSmoking Tobacco: FormerCigarettes0.510 Smokeless Tobacco: NeverAlcohol UseStandard Drinks/WeekCommentsYes4 (1 standard drink = 0.6 oz pure alcohol)CommentsNoSex and Gender InformationValue Date RecordedSex Assigned at QiwfzMdkppa41/30/2024 8:54 AM EDTLegal SexFemale 01/17/2023 7:16 PM EDTGender QokfhbtxBqjzhp44/30/2024 8:54 AM EDTSexual CuicnpdkeizQgzgyhyl78/30/2024 8:54 AM EDTdocumented as of this encounter Plan of Treatment DateTypeDepartmentCare Team (Latest Contact Info)Wejyjsenqxx28/21/2026 1:00 PM ESTProcedure Visit [facility] [place] [facility] [address] [place] [address] Prince, Travis, [address] [place] [address] documented as of this encounter Visit Diagnoses Not on filedocumented in this encounter
--- OUTSIDE RECORDS SUMMARY | 2025-11-03 13:07 | XMS_ITS | Clinical Summary ---
Author Organization [facility] Address [address] [place] [address] Care Team Providers Care Parts Data Writer Name Role Phone Unavailable Primary Care Provider Unavailabl e Allergies Active AllergyReactionsCriticalityNoted DateCommentsSulfa Drkdfpvjfoy36/30/2024 Other Reaction(s): hives Medications MedicationSigDispense QuantityRefillsLast FilledStart DateEnd DateStatus levothyroxine (Synthroid, Levoxyl) 125 MCG tablet Take 125 mcg by mouth 1 (one) time each day at the same timeActive Imitrex 100 MG tablet 100 mg every 12 (twelve) hours04/17/2023ctive azithromycin (Zithromax Z-Ayush) 250 MG tablet Indications:Bacterial infectionAs directed 6 tablet Discontinued(Other) Encounters DateTypeDepartmentCare TmdwMxlgzqgegbb81/23/2025Orders Only [facility] [place] [facility] [address] [place] [address] Carmelita Louise LPN 10/21/2025 1:00 PM ESTProcedure Visit [facility] [place] [facility] [address] [place] [address] Maida Jang PA Well woman exam with routine gynecological exam; Breast cancer screening by emxiuxbgk42/17/2025linisync Result Encounter [facility] External Department Unsolicited Maida Jang PA 10/21/2025amboo flowsheet [facility] [place] [facility] [address] [place] [address] Maida Jang PA 10/14/2025Travelfrom Last 3 Months Family History Medical HistoryRelationNameCommentsHyperlipidemiaFatherKimHypertensionFatherKim DiabetesMaternal GrandfatherRichardStrokeMaternal GrandfatherRichardCancerMother TonyaMigrainesMotherTonyaThyroid diseasePaternal GrandmotherAnnRelationName StatusCommentsFatherKimMaternal GrandfatherRichardMotherTonyaPaternal GrandmotherAnn Social History Tobacco UseTypesPacks/DayYears UsedDateSmoking Tobacco: FormerCigarettes0.510 Smokeless Tobacco: Never Tobacco Cessation:Counseling Given: Not Answered Alcohol UseStandard Drinks/WeekCommentsYes4 (1 standard drink = 0.6 oz pure alcohol)CommentsNoSex and Gender InformationValueDate RecordedSex Assigned at WelugZonjhc07/30/2024 8:54 AM EDTLegal QqkJcorlw51/15/2023 7:16 PM EDTGender JeiwbxlrBmnene52/30/2024 8:54 AM EDTSexual OrientationStraight 04/03/2024 8:54 AM EDT Last Filed Vital Signs Vital SignReadingTime TakenCommentsBlood Xxaljphz100/7410/21/2025 1:16 PM EST Pulse--Temperature--Respiratory Rate--Oxygen Saturation--Inhaled Oxygen Concentration--Rcwtyt72.6 kg (146 lb 12.8 oz)10/21/2025 1:16 PM BRRPgdngd764.5 cm (5' 2 )04/10/2024 12:13 PM EDTBody Mass Index26.85004/10/2024 12:13 PM EDT Plan of Treatment DateTypeDepartmentCare Team (Latest Contact Info)Zwoewlwuult78/21/2026 1:00 PM ESTProcedure Visit [facility] [place] [facility] [address] [place] [address] Travis Morrison DO [address] [place] [address] Procedures Procedure NamePriorityDate/TimeAssociated DiagnosisCommentsIGP,APTIMA HPV,AGE TDLJYqmszen97/17/2025 1:04 PM EST PAP TEST, TYPDYHFVDoarhce93/16/2025 12:00 AM ESTfrom Last 3 Months Results * IGP,APTIMA HPV,AGE GDLN (10/21/2025 1:04 PM EST)ComponentValueRef RangeTest MethodAnalysis TimePerformed AtPathologist SignatureAGE GDLN ACOG TESTINGNote. TBHComment: ?? TESTS ? RESULT ??FLAG ??UNITS ?REF RANGE ??LAB ?? Clinician Provided Cytology Information ?? Source.............Cervix;Endocervix ?? No. of containers..01 ThinPrep Vial Age Algo ACOG Francesca... ??30-65 ? 01 ?FLAG LEGEND: ?L-Low Normal,H-High Normal,LL-Alert Low,HH-Alert High <-Panic Low,>-Panic High,A-Abnormal,AA-Critical Abnormal Performed at: 01 =G ?[facility] ?? [address] [place] ??[address] ?? Karolyn Salgado MD, IGP, APTIMA HPV, RFX 16/18,45Note.TBHComment: ?? TESTS ? RESULT ??FLAG ??UNITS ?REF RANGE ??LAB DIAGNOSIS: ?02 ?? NEGATIVE FOR INTRAEPITHELIAL LESION OR MALIGNANCY. Specimen adequacy: ?02 ?? Satisfactory for evaluation. ??Endocervical and/or squamous metaplastic ?? cells (endocervical component) are present. Performed by: ? 02 ?? Carson Lara, Electrical Wiring Lineman (ASCP) . ? 02 Note: ? Note ?02 ?? The Pap smear is a screening test designed to aid in the ?? detection of premalignant and malignant conditions of the ?? uterine cervix. ??It is not a diagnostic procedure and ?? should not be used as the sole means of detecting cervical ?? cancer. ??Both false-positive and false-negative reports do ?? occur. Test Methodology: ? Note ?02 ?? This liquid based ThinPrep(R) pap test was interpreted ?? using the MacuCLEAR(R) Genius(TM) Cervical Algorithm whole ?? slide imaging system. HPV Genotype Reflex ?? Note ?02 ?? Criteria not met, HPV Genotype not performed. ?FLAG LEGEND: ?L-Low Normal,H-High Normal,LL-Alert Low,HH-Alert High <-Panic Low,>-Panic High,A-Abnormal,AA-Critical Abnormal Performed at: 02 WB [facility] ?? [address] [place], [place] ??[address] ?? Karolyn Salgado MD, HPV APTIMANegativeNegativeTBHComment: This nucleic acid amplification test detects fourteen high- risk HPV types (16,18,31,33,35,39,45,51,52,56,58,59,66,68) without differentiation. Performed at: ??=G - [address] ??[id number] Collar Band Creaser: Karolyn Salgado MD, Phone: ??[phone] Performed at: ??WB - [address] ??[id number] Collar Band Creaser: Karolyn Salgado MD, Phone: ??[phone] Specimen (Source)Anatomical Location / LateralityCollection Method / Volume Collection TimeReceived Time10/21/2025 1:04 PM EST10/21/2025 8:23 PM EST Narrative [facility] - 10/26/2025 10:08 AM EST BRUSH-SPATULA CERVIX ENDOCERVIX Authorizing ProviderResult TypeResult StatusAmy Buxton PALAB BLOOD ORDERABLES Final ResultPerforming OrganizationAddressCity/State/ZIP CodePhone Number [facility] * PAP TEST, EXTERNAL (10/20/2025 12:00 AM EST) Narrative Authorizing ProviderResult TypeResult StatusAmy Suhail PALAB CYTOLOGY ORDERABLES Final ResultPerforming OrganizationAddressCity/State/ZIP CodePhone Number EXTERNAL LAB from Last 3 Months Insurance
--- OUTSIDE RECORDS SUMMARY | 2025-11-03 13:07 | XMS_ITS | Patient Health Record ---
Author Organization The [facility] [place] Address [address] [place] [address] Care Team Providers Care Client Professional Name Role Phone Sree Tompkins Primary Care Provider Allergies Allergen (clinical drug ingredient) Drug/Non Drug Allergy documented on EMR Reaction Allergy Type Onset Date Status Substance with sulfonamide s tructure and antibacterial mechanism of action (substance) Sulfa Antibiotics hives Drug Allergy Active Results Component Value Reference Range Notes MM tomosynthesis screening B I Reviewed date:06/07/2025 08:00:08 PM Interpretation: Performing Lab: Notes/Report: Source Facility: [place] [address] Mammography Report Signed Patient: MARILEE PORRAS MR#: [id number] : 1985 Acct:[id number] Age/Sex: 40 / F ADM Date: 06/05/25 Loc: MAMMO Attending Dr: Miguel Morrison D.O. Ordering Physician: Miguel Morrison D.O. Results: Date of Service: 06/05/25 Follow Up: Procedure(s): MM tomosynthesis screening BI Accession Number(s): [id number] cc: Miguel Morrison D.O.; Frederick Tompkins M.D. Patient Name: MARILEE PORRAS MR#: [id number] : 1985 Exam Date: 06/05/2025 Ordering Doctor: [...] Treatments None Family Cancers None LOCATION: [facility] BREAST COMPOSITION: The breasts are heterogeneously dense, [...] Signed By: 06/05/25 1552 DD/ 1551 TD/TT: Head Insulation Board Saw Operator: CBC AUTO DIFF Reviewed date:08/23/2025 11:31:18 AM Interpretation: Performing Lab: Notes/Report: [facility] , White Blood Count 5.2 4.0-11.0 10 3/uL Red Blood Count4.444.20-5.40 10 6/hUIeccyiuuwz21.512.0-16.0 g/jCIqnndvcgjf35.5 36.0-48.0 %Mean Corpuscular Ususkb84.281.0-99.0 fLMean Corpuscular Hemoglobin 30.426.7-34.0 pgMean Corpuscular HGB Conc33.329.9-35.2 g/dLRed Cell Distribution Width11.711.0-15.0 %Platelet Qhrde005377-025 10 3/uLMean Platelet Edljht13.79.5- 13.5 fLNeutrophils Percent Auto50.243.0-75.0 %Lymphocytes Percent Auto32.620.5- 60.0 %Monocytes Percent Auto10.21.7-12.0 %Eosinophils Percent Auto5.60.9-7.0 % Basophils Percent Auto1.20.2-2.0 %Immature Granulocytes Pct Auto0.20.0-0.5 % Neutrophils Absolute Auto2.61.4-6.5 10 3/uLLymphocytes Absolute Auto1.71.2-3.8 10 3/uLMonocytes Absolute Auto0.50.3-0.8 10 3/uLEosinophils Absolute Auto0.30.0- 0.7 10 3/uLBasophils Absolute Auto0.10.0-0.1 10 3/uLImmature Granulocytes Abs Auto0.010.00-0.03 10 3/uLPerforming Lab:see noteML - [facility] LB LIPID PROFILE Reviewed date:08/23/2025 11:31:18 AM Interpretation: Performing Lab: Notes/Report: [facility] ,Umtsaxtdvjref83<=150 mg/cICohogetyozp559<=200 mg/dLHDL Wpqtzxumnhq2235-72 mg/dL > or =60 mg/dl - LOW CARDIOVASCULAR RISK <40 mg/dl - HIGH CARDIOVASCULAR RISK LDL Cholesterol Eomggdeyrh398.0 <100 mg/dl OPTIMAL 100-129 mg/dl NEAR OR ABOVE OPTIMAL 130-159 mg/dl BORDERLINE HIGH 160-189 mg/dl HIGH >190 mg/dl VERY HIGH VLDL QEFOKDTDKIQ22.4Chol HDL Ratio3.1 3.3 - 4.4 LOW RISK 4.4 - 7.1 AVERAGE RISK 7.1 - 11.0 MODERATE RISK >11.0 HIGH RISK Performing Lab:see noteML - [facility] LBPROF 14(COMP METB) Reviewed date:08/23/2025 11:31:18 AM Interpretation: Performing Lab: Notes/Report: [facility] ,Lgfcxa923791-975 mmol/LPotassium4.23.5-5.1 mmol/ELonkezwi00807-053 mmol/LCarbon Nknzxma53.821.0-32.0 mmol/LAnion Gap6.8Qzwvbdk1660-098 mg/dLBlood Urea Nitrogen 13.07.0-18.0 mg/dLCreatinine0.810.55-1.02 mg/dLEstimated GFR ( Arminda>60 >=60 mL/min/1.73m 2Estimated GFR (Non- Maria G>60>=60 mL/min/1.73m 2BUN Creatinine Ratio16.4Tmfvacp3.08.5-10.1 mg/dLBilirubin Total0.40.2-1.0 mg/dL Aspartate Amino Xtaopojmmag1663-81 U/LAlanine Vggpinykvbenosrp4071-03 U/L Alkaline Chrpzqftcdn8324-642 U/LTotal Protein7.36.4-8.2 g/dLAlbumin Level3.83.4- 5.0 g/dLGlobulin3.5Albumin Globulin Ratio1.1Performing Lab:see noteML - [facility] LBIGP,Aptima HPV,Age Gdln Reviewed date:10/26/2025 12:42:12 PM Interpretation: Performing Lab: Notes/Report: BRUSH-SPATULA CERVIX ENDOCERVIX [facility] ,Age Gdln ACOG TestingNote. TESTS RESULT FLAG UNITS REF RANGE LAB Clinician Provided Cytology Information Source.............Cervix;Endocervix No. of containers..01 ThinPrep Vial Age Algo ACOG Francesca... 30-65 01 FLAG LEGEND: L-Low Normal,H-High Normal,LL-Alert Low,HH-Alert High <-Panic Low,>-Panic High,A-Abnormal,AA-Critical Abnormal Performed at: 01 =G [facility] [address] Karolyn Salgado MD, IGP, Aptima HPV, rfx 16/18,45Note. TESTS RESULT FLAG UNITS REF RANGE LAB DIAGNOSIS: 02 NEGATIVE FOR INTRAEPITHELIAL LESION OR MALIGNANCY. Specimen adequacy: 02 Satisfactory for evaluation. Endocervical and/or squamous metaplastic cells (endocervical component) are present. Performed by: 02 Carson Lara, Poke In ([facility]) . 02 Note: Note 02 The Pap smear is a screening test designed to aid in the detection of premalignant and malignant conditions of the uterine cervix. It is not a diagnostic procedure and should not be used as the sole means of detecting cervical cancer. Both false-positive and false-negative reports do occur. Test Methodology: Note 02 This liquid based ThinPrep(R) pap test was interpreted using the Microsaic(R) Sapphire Innovation(TM) Cervical Algorithm whole slide imaging system. HPV Genotype Reflex Note 02 Criteria not met, HPV Genotype not performed. FLAG LEGEND: L-Low Normal,H-High Normal,LL-Alert Low,HH-Alert High <-Panic Low,>-Panic High,A-Abnormal,AA-Critical Abnormal Performed at: 02 WB [facility] [place] [address] [place] [address] Karolyn Salgado MD, HPV AptimaNegativeNegative This nucleic acid amplification test detects fourteen high- risk HPV types (16,18,31,33,35,39,45,51,52,56,58,59,66,68) without differentiation. Performed at: = - [facility] [id number] Tube Draw Helper: Karolyn Salgado MD, Phone: [phone] Performed at: [facility] [id number] Tube Draw Helper: Karolyn Salgado MD, Phone: [phone] Performing Lab:see noteLC - [facility] LB Reason For Referral No Information Medications Medication [...] Status W/U Status Risk Notes Problem Migraine (96559799) Migraine (G43.909) ActiveconfirmedProblemWell adult (856822536)Well adult (Z00.00)Activeconfirmed ProblemCluster headache (121128829)Cluster headache (G44.009)Activeconfirmed Vital Signs Blood pressure diastolic 82 mm Hg 08/27/2025 Rxajvw24 in08/27/2025lood pressure pzccprqo071 mm Hg08/27/20256525Krldhz524.0 lbs 08/27/2025BMI26.88 kg/m208/27/2025 Encounters Encounter Location Date Provider Diagnosis [facility] [address] [place] [address] 11/19/2024 Sree Hoy Cluster headache G44.009 [facility] [address] [place] [address] 08/27/2025 Sree Hoy Well adult Z00.00 [facility] [address] [place] [address] 05/25/2025 Sree Hoy Migraine G43.909 [facility] [address] [place] [address] 05/25/2025 Sree Hoy [facility] [place] [address] [facility] [place] [address]/19/2025Doug Leda Assessments Encounter Date Diagnosis (ICD Code) Assessment Notes Treatment Notes Treatment Clinical Notes Section Notes 11/19/2024 Cluster headache (ICD-10 - G44.0 09) 08/27/2025Well adult (ICD-10 - Z00.00)Check on on umrxpxe5105/25/2025Migraine (ICD-10 - G43.909) Plan Of Treatment Pending Test Test Name Order Date CMP (COMPLETE METABOLIC PANEL) HEMOGLOBIN A1C (GLYCO) 11/19/2024 HEMOGLOBIN A1C (GLYCO) 04/17/2023 IRON, TOTAL 11/19/2024 LIPID PANEL (CHOL/TRIG/HDL/LDL) 04/17/20 CBC WITH DIFF (EXP 09/2025) 04/17/2023 CBC WITH DIFF (EXP 09/2025) 11/19/2024 VITAMIN D, 25 LEVEL (TOTAL) 11/19/2024 MRI Brain w/o contrast 04/17/2023 Insulin Level 11/19/2024 TSH 04/17/2023 THYROID PANEL (T4/TSH/FREE T3) 5 THYROID PANEL (T4/TSH/FREE T3) 5 CMP (COMP MET BAI) w/eGFR CKD-EPI 2024 Insurance Providers Payer Name Payer Address Payer Phone Subscriber Number Group Number Insured Name Patient Relationship to Insured Coverage Start Date Coverage End Date [employer] [address] [place] [address] [id number] Marilee Porras Self - patient is the insured Medical (General) History Medical History History ICD Code Mass of neck R22.1 Sigmoid diverticulosis K57.30 Gastroenteritis K52.9 Hypothyroidism E03.9 Eczema L30.9 Hypercholesteremia E78.00 Carpal tunnel syndrome G56.00 Alopecia L65.9 Surgical History Surgery Date(Month/Year) D & C
--- OUTSIDE RECORDS SUMMARY | 2025-11-03 13:07 | XMS_ITS | Encounter Summary ---
Author Organization [facility] Address [address] [place] [address] Care Team Providers Care Cigarette Making Machine Catcher Name Role Phone Unavailable Primary Care Provider Unavailabl e Encounter Details DateTypeDepartmentCare Team (Latest Contact Info)Rjpkevrnlwd44/23/2025Orders Only [facility] FLORE[facility] [address] [place] [address] Carmelita Louise LPN [address] [place] [address] Social History Tobacco UseTypesPacks/DayYears UsedDateSmoking Tobacco: FormerCigarettes0.510 Smokeless Tobacco: NeverAlcohol UseStandard Drinks/WeekCommentsYes4 (1 standard drink = 0.6 oz pure alcohol)CommentsNoSex and Gender InformationValue Date RecordedSex Assigned at LkzblQrczhf48/30/2024 8:54 AM EDTLegal SexFemale 01/17/2023 7:16 PM EDTGender AkfydlctMjhwto93/30/2024 8:54 AM EDTSexual QlrscxnkjupCgcgkwul85/30/2024 8:54 AM EDTdocumented as of this encounter Plan of Treatment DateTypeDepartmentCare Team (Latest Contact Info)Egzzrwicpdg77/21/2026 1:00 PM ESTProcedure Visit [facility] FLOREZ [address] [address] Prince, Tarvis, [address] Gagandeep Reeder Yuliet, [facility] documented as of this encounter Procedures Procedure NamePriorityDate/TimeAssociated DiagnosisCommentsPAP TEST, EXTERNAL Zsmqnen2410/20/2025 12:00 AM ESTdocumented in this encounter Results * PAP TEST, EXTERNAL (10/20/2025 12:00 AM EST) Narrative Authorizing ProviderResult TypeResult StatusAmy Suhail [facility] CYTOLOGY ORDERABLES Final ResultPerforming OrganizationAddressCity/State/ZIP CodePhone Number EXTERNAL LAB documented in this encounter Visit Diagnoses Not on filedocumented in this encounter
--- OUTSIDE RECORDS SUMMARY | 2025-11-03 13:07 | XMS_ITS | Encounter Summary ---
Author Organization [facility] Address [address] [place] [address] Care Team Providers Care Disability Hearing Officer Name Role Phone Unavailable Primary Care Provider Unavailabl e Encounter Details DateTypeDepartmentCare Team (Latest Contact Info)Uqhciglqqmy22/17/2025linisync Result Encounter [facility] External Department Unsolicited Maida Jang PA [address] [place], [place] [address] Social History Tobacco UseTypesPacks/DayYears UsedDateSmoking Tobacco: FormerCigarettes0.510 Smokeless Tobacco: NeverAlcohol UseStandard Drinks/WeekCommentsYes4 (1 standard drink = 0.6 oz pure alcohol)CommentsNoSex and Gender InformationValue Date RecordedSex Assigned at XgthuEokfuk09/30/2024 8:54 AM EDTLegal SexFemale 01/17/2023 7:16 PM EDTGender RownisslRqiqnr03/30/2024 8:54 AM EDTSexual XyeiwrqvmgzMuasisva62/30/2024 8:54 AM EDTdocumented as of this encounter Plan of Treatment DateTypeDepartmentCare Team (Latest Contact Info)Gqmyucipwjx15/21/2026 1:00 PM ESTProcedure Visit [facility]BGYN [address] [place] [address] Travis Morrison DO [address] [facility] [address] [place] [address] documented as of this encounter Procedures Procedure NamePriorityDate/TimeAssociated DiagnosisCommentsIGP,APTIMA HPV,AGE WMUSVqatzon84/17/2025 1:04 PM EST documented in this encounter Results * IGP,APTIMA HPV,AGE GDLN (10/21/2025 1:04 [...] at: 01 =G ?[facility] [address] ?? [address] [place] ??[address] ?? Karolyn Salgado MD, IGP, APTIMA HPV, RFX 16/18,45Note.TBHComment: ?? TESTS ? RESULT ??FLAG ??UNITS ?REF RANGE ??LAB DIAGNOSIS: ?02 ?? NEGATIVE FOR INTRAEPITHELIAL LESION OR MALIGNANCY. Specimen adequacy: ?02 ?? Satisfactory for evaluation. ??Endocervical and/or squamous metaplastic ?? cells (endocervical component) are present. Performed by: ? 02 ?? Carson Lara, Auto Job Estimator (ASCP) . ? 02 Note: ? Note [...] pap test was interpreted ?? using the Clicktree(R) Genius(TM) Cervical Algorithm whole ?? slide imaging system. HPV Genotype Reflex ?? Note ?02 ?? Criteria not met, HPV Genotype not performed. ?FLAG LEGEND: ?L-Low Normal,H-High Normal,LL-Alert Low,HH-Alert High <-Panic Low,>-Panic High,A-Abnormal,AA-Critical Abnormal Performed at: 02 WB ?[facility] ?? [address] [place], [place] ??[address] ?? Karolyn Salgado MD, HPV APTIMANegativeNegativeTBHComment: This nucleic acid amplification test detects fourteen high- risk HPV types (16,18,31,33,35,39,45,51,52,56,58,59,66,68) without differentiation. Performed at: ??=G - [address] ??[id number] Director Of Casework Department: Karolyn Salgado MD, Phone: ??[phone] Performed at: ??WB - [address] ??[id number] Director Of Casework Department: Karolyn Salgado MD, Phone: ??[phone] Specimen (Source)Anatomical Location / LateralityCollection Method / Volume Collection TimeReceived Time10/21/2025 1:04 PM EST10/21/2025 8:23 PM EST Narrative [facility] - 10/26/2025 10:08 AM EST BRUSH-SPATULA CERVIX ENDOCERVIX Authorizing ProviderResult TypeResult StatusAmy Suhail VAUGHN BLOOD ORDERABLES Final ResultPerforming OrganizationAddressCity/State/ZIP CodePhone Number [facility] documented in this encounter Visit Diagnoses Not on filedocumented in this encounter
--- OUTSIDE RECORDS SUMMARY | 2025-11-03 13:13 | XMS_ITS | CCD ---
Author Organization [facility] Care Team Providers Care Public Transportation Inspector Name Role Phone Jennifer Rodrigues Unavailable PRINCE ., DR RIVERA Attending Unavailable PRINCE ., DR RIVERA Consulting Unavailable HOY ., DR VAIL Primary Care Unavailable PRINCE ., DR RIVERA Admitting Unavailable PRINCE ., DR RIVERA Consulting Unavailable HOY ., DR VAIL Primary Care Unavailable PRINCE ., DR RIVERA Admitting Unavailable PRINCE ., DR RIVERA Attending Unavailable ZIEBCORDELIA, DR CHRIS Domíngeuz Consulting Unavailable HOY ., DR VAIL Attending Unavailable HOY ., DR VAIL Consulting Unavailable HOY ., DR VAIL Primary Care Unavailable HOY ., DR VAIL Admitting Unavailable PRINCE ., DR RIVERA Consulting Unavailable PRINCE ., DR RIVERA Admitting Unavailable HOY ., DR VAIL Primary Care Unavailable PRINCE ., DR RIVERA Attending Unavailable [place], DR GE Lopez Consulting Unavailable HOY ., DR VAIL Primary Care Unavailable PRINCE ., DR RIVERA Admitting Unavailable PRINCE ., DR RIVERA Attending Unavailable PRINCE ., DR RIVERA Consulting Unavailable PRINCE ., DR RIVERA Attending Unavailable PRINCE ., DR RIVERA Consulting Unavailable HOY ., DR VAIL Primary Care Unavailable PRINCE ., DR RIVERA Admitting Unavailable ZIEBER, DR CHRIS Domínguez Consulting Unavailable PRINCE ., DR RIVERA Attending Unavailable HOY ., DR VAIL Primary Care Unavailable PRINCE ., DR RIVERA Admitting Unavailable ABDOULAYE CHACKO Admitting Unavailable MAIDA CABRERA Consulting Unavailable JAMES ., DR VAIL Primary Care Unavailable ABDOULAYE CHACKO Attending Unavailable GE GONZALES Consulting Unavailable PRINCEMIGUEL Attending Unavailable Unavailable Primary Care Provider Unavailabl e Allergies Allergy ClassificationReported Allergen(s)Allergy TypeDate of OnsetReaction(s) Facility (1 source)Sulfacetamide / SulfurDrug AllergyhivesNoellis fischel cancer center InDMusic Other (1 source)Sulfonamides (Antibiotic)Drug allergy (disorder)38-53-8814BbhKettering Health Hamilton Repository (2 sources)Sulfonamides (Antibiotic)Drug Xftdibjxrdm57-10-9516UHQZ Healthcare Work Phone: Medications Current Medications MedicationDrug Class(es)DatesSig (Normalized)Sig (Original)azithromycin 250 mg oral tablet (1 source)Macrolide AntimicrobialStart: 83-49-8094ipocoejkguwb (Zithromax Z-Ayush) 250 MG tablet Indications: Bacterial infection As directed 6 tablet 07/04/2024 Activelevothyroxine sodium 0.125 mg oral tablet (3 sources)l-Thyroxinetake 1 tablet by mouth once dailylevothyroxine (Synthroid, Levoxyl) 125 MCG tablet Take 125 mcg by mouth 1 (one) time each day at the same time ActiveLevothyroxine Sodium ActiveSUMAtriptan 100 mg oral tablet (2 sources)Serotonin-1b and Serotonin-1d Receptor AgonistStart: 72-30-7833wdhn 1 tablet by mouth every twelve hoursImitrex 100 MG tablet 100 mg every 12 (twelve) hours 04/17/2023 Active Problems Active Problems Problem ClassificationProblemDateDocumented DateEpisodic/ChronicMenstrual disorders (5 sources)Irregular menstruation, unspecified; Translations: [IRREGULAR MENSTRUATION UNSPECIFIED]Onset: 85-60-2402RugjfrvFyapdgjtqiqr breast conditions (5 sources)Hypertrophy of breast; Translations: [Unspecified lump in the left breast, unspecified quadrant]Onset: 83-25-4456HnkbwekoBnygr upper respiratory infections (1 source)Acute upper respiratory infection, unspecifiedEpisodicUnclassified (4 sources)Unspecified lump in the left breast, overlapping quadrants; Translations: [UNS LUMP LT BREAST OVRLPNG QUADRNTS]Onset: 12-05-2022 Past or Other Problems Problem ClassificationProblemDateDocumented DateEpisodic/ChronicImmunizations and screening for infectious disease (2 sources)Contact with and (suspected) exposure to other viral communicable diseases; Translations: [Encounter for screening for human papillomavirus (HPV)] Onset: 89-71-8037OycnewctWwrhl connective tissue disease (3 sources)Pain in right finger(s); Translations: [PAIN IN RIGHT FINGERS]Onset: 31-65-1450AbmgadijCwexd screening for suspected conditions (not mental disorders or infectious disease) (4 sources)Encounter for screening for malignant neoplasm of cervix; Translations: [ENC SCREENING MALIG NEOPLASM CERV]Onset: 76-87-3061ExoazlwpWosx and subcutaneous tissue infections (1 source)Cellulitis of right finger; Translations: [CELLULITIS OF RIGHT FINGER] Onset: 33-98-8188Thhunigp Results Test NameValueInterpretationReference RangeFacilityMM TOMOSYNTHESIS SCREENING BI on 80-93-0632Uyi [place] [address] Mammography Report Signed Patient: MARILEE PORRAS MR#: [id number] : 1985 Acct:[id number] Age/Sex: 40 / F ADM Date: 06/05/25 Loc: MAMMO Attending Dr: Miguel Morrison D.O. Ordering Physician: Miguel Morrison D.O. Results: Date of Service: 06/05/25 Follow Up: Procedure(s): MM tomosynthesis screening BI Accession Number(s): [id number] cc: Miguel Morrison D.O.; Yared Tompkins M.D. Patient Name: MARILEE PORRAS MR#: [id number] : 1985 Exam Date: 06/05/2025 Ordering Doctor: [...] Treatments None Family Cancers None LOCATION: [facility] BREAST COMPOSITION: The breasts are heterogeneously dense, [...] Signed By: 06/05/25 1552 DD/ 1551 TD/TT: Directional Drill Operator:TBHRadiology, Radiologist, MD - 06/05/2025 [place] [address] Mammography Report Signed Patient: MARILEE PORRAS MR#: [id number] : 1985 Acct:[id number] Age/Sex: 40 / F ADM Date: 06/05/25 Loc: MAMMO Attending Dr: Miguel Morrison D.O. Ordering Physician: Miguel Morrison D.O. Results: Date of Service: 06/05/25 Follow Up: Procedure(s): MM tomosynthesis screening BI Accession Number(s): [id number] cc: Miguel Morrison D.O.; Yared Tompkins M.D. Patient Name: MARILEE PORRAS MR#: [id number] : 1985 Exam Date: 06/05/2025 Ordering Doctor: [...] Treatments None Family Cancers None LOCATION: [facility] BREAST COMPOSITION: The breasts are heterogeneously dense, [...] Signed By: 06/05/25 1552 DD/ 1551 TD/TT: Directional Drill Operator: [facility] HealthcareRadiology Study observation (narrative)[facility] TOMOSYNTHESIS SCREENING BIOrdered By: Radiologist Radiology on 39-90-1687MSKD DVTel Work Phone: MM TOMOSYNTHESIS SCREENING BIon 04-93-10[place] [address] Mammography Report Signed Patient: MARILEE PORRAS MR#: [id number] : 1985 Acct:[id number] Age/Sex: 39 / F ADM Date: 06/02/24 Loc: MAMMO Attending Dr: Miguel Morrison D.O. Ordering Physician: Miguel Morrison D.O. Results: Date of Service: 06/02/24 Follow Up: Procedure(s): MM tomosynthesis screening BI Accession Number(s): [id number] cc: Miguel Morrison D.O.; Yared Tompkins M.D. Patient Name: MARILEE PORRAS MR#: [id number] : 1985 Exam Date: 06/02/2024 Ordering Doctor: DR Miguel Morrison . RADIOLOGY REPORT PROCEDURE: MM TOMOSYNTHESIS SCREENING BI COMPARISON: MM TOMOSYNTHESIS DIAGNOSTIC LT, 06/25/2023. MG MAMM DIAGNOSTIC 3D JORDON CAD, 11/28/2022. INDICATIONS: Screening for malignant neoplasm of breasts Calculator Name NCI Breast Cancer Risk Assessment Tool 5 Year Breast Cancer Risk Not Reported. Lifetime Breast Cancer Risk Not Reported. Personal Breast Cancer No Personal Ovarian Cancer No Treatments None Family Cancers None LOCATION: [facility] BREAST COMPOSITION: The breasts are heterogeneously dense,which may obscure small masses. FINDINGS: DIAGNOSTIC CATEGORY 2--BENIGN FINDING: RIGHT BREAST: No significant suspicious finding. Scattered benign-appearing lymph nodes are present. No significant change has occurred. LEFT BREAST: No significant suspicious finding. Stable mass with adjacent biopsy marker clip within supra-areolar anterior breast No significant change has occurred. RECOMMENDATIONS: ROUTINE MAMMOGRAM AND CLINICAL EVALUATION IN 12 MONTHS. PLEASE NOTE: A NORMAL MAMMOGRAM DOES NOT EXCLUDE THE POSSIBILITY OF BREAST CANCER. A CLINICALLY SUSPICIOUS PALPABLE LUMP SHOULD BE BIOPSIED. Dictated by: Chris Franks M.D. on 06/02/2024 at 16:05 Approved by: Chris Franks M.D. on 06/02/2024 at 16:08 Dictated By: Chris Franks M.D. Signed By: 06/02/24 1610 DD/ 1609 TD/TT: Directional Drill Operator:TBHRadiology, Radiologist, MD - 06/02/2024 [place] [address] Mammography Report Signed Patient: MARILEE PORRAS MR#: [id number] : 1985 Acct:[id number] Age/Sex: 39 / F ADM Date: 06/02/24 Loc: MAMMO Attending Dr: Miguel Morrison D.O. Ordering Physician: Miguel Morrison D.O. Results: Date of Service: 06/02/24 Follow Up: Procedure(s): MM tomosynthesis screening BI Accession Number(s): [id number] cc: Miguel Morrison D.O.; Yared Tompkins M.D. Patient Name: MARILEE PORRAS MR#: [id number] : 1985 Exam Date: 06/02/2024 Ordering Doctor: DR Miguel Morrison . RADIOLOGY REPORT PROCEDURE: MM TOMOSYNTHESIS SCREENING BI COMPARISON: MM TOMOSYNTHESIS DIAGNOSTIC LT, 06/25/2023. MG MAMM DIAGNOSTIC 3D JRODON CAD, 11/28/2022. INDICATIONS: Screening for malignant neoplasm of breasts Calculator Name NCI Breast Cancer Risk Assessment Tool 5 Year Breast Cancer Risk Not Reported. Lifetime Breast Cancer Risk Not Reported. Personal Breast Cancer No Personal Ovarian Cancer No Treatments None Family Cancers None LOCATION: [facility] BREAST COMPOSITION: The breasts are heterogeneously dense,which may obscure small masses. FINDINGS: DIAGNOSTIC CATEGORY 2--BENIGN FINDING: RIGHT BREAST: No significant suspicious finding. Scattered benign-appearing lymph nodes are present. No significant change has occurred. LEFT BREAST: No significant suspicious finding. Stable mass with adjacent biopsy marker clip within supra-areolar anterior breast No significant change has occurred. RECOMMENDATIONS: ROUTINE MAMMOGRAM AND CLINICAL EVALUATION IN 12 MONTHS. PLEASE NOTE: A NORMAL MAMMOGRAM DOES NOT EXCLUDE THE POSSIBILITY OF BREAST CANCER. A CLINICALLY SUSPICIOUS PALPABLE LUMP SHOULD BE BIOPSIED. Dictated by: Chris Franks M.D. on 06/02/2024 at 16:05 Approved by: Chris Franks M.D. on 06/02/2024 at 16:08 Dictated By: Chris Franks M.D. Signed By: 06/02/24 1610 DD/ 1609 TD/TT: Directional Drill Operator: [facility] CenterRadiology Study observation (narrative)[facility] TOMOSYNTHESIS SCREENING BIOrdered By: Radiologist Radiology on 86-37-2994OYQZ DVTel Work Phone: US PREG TVon 30-83-8069OC PREG TVEXAMINATION: US PREG TV HISTORY: Irregular periods COMPARISON: [...] no suspicious adnexal findings. Electronically authenticated by: CHRIS FRANKS Date: 2022-12-21 15:08M[facility]field HospitalUS VAC ASST BX BREAST LT W CLIPon 74-56-1402WU VAC ASST BX BREAST LT W CLIP Begin Addendum #1 COLLECTED DATE/TIME: 12/05/2022; 11:23 EST Final Diagnosis Report for THE [place] LEFT BREAST 12 O'CLOCK MASS; BIOPSY: [...] will be provided after pathology results are available.NormalKettering Health HamiltonPREG QUANT HCGon 20-16-7688HHZ QOTVX623 mIU/mLNormalKettering Health HamiltonComment on above:Performed By: #### PREGQNT #### [facility] [address] [address] [address] Sherri Wright [facility] Community HospitalComment on above: Result Comment: 5-50 0.2-1 WEEK 50-500 1-2 WEEKS 100-5,000 2-3 WEEKS 500-10,000 3-4 WEEKS 1,000-50,000 4-5 WEEKS 10,000-100,000 5-6 WEEKS 15,000-200,000 6-8 WEEKS 10,000-100,000 2-3 MONTHSPerformed By: #### PREGQNT #### [facility] [address] [place] [address] [address] [address] Sherri Green QUANT HCGon 14-40-3584QJK TQHLL031 mIU/mLNormalKettering Health HamiltonComment on above:Performed By: #### PREGQNT #### [facility] [address] [place] [address] Dr. Sherri Wright [facility] HospitalComs[facility] on above: Result Comment: 5-50 0.2-1 WEEK 50-500 1-2 WEEKS 100-5,000 2-3 WEEKS 500-10,000 3-4 WEEKS 1,000-50,000 4-5 WEEKS 10,000-100,000 5-6 WEEKS 15,000-200,000 6-8 WEEKS 10,000-100,000 2-3 MONTHSPerformed By: #### PREGQNT #### [facility] [address] [place] [address] Dr. Sherri Green QUANT HCGon 31-00-6927RRP QUANT40 mIU/mLNLake County Memorial Hospital - WestComsinai-grace hospital on above:Performed By: #### [id number] #### [facility] [address] [place] [address] Dr. Sherri Wright [facility] HospitalComment on above: Result Comment: 5-50 0.2-1 WEEK 50-500 1-2 WEEKS 100-5,000 2-3 WEEKS 500-10,000 3-4 WEEKS 1,000-50,000 4-5 WEEKS 10,000-100,000 5-6 WEEKS 15,000-200,000 6-8 WEEKS 10,000-100,000 2-3 MONTHSPerformed By: #### [id number] #### [facility] [address] [place] [address] Dr. Sherri SegundoMG MAMM DIAGNOSTIC 3D JORDON CADon 76-38-8219XK MAMM DIAGNOSTIC 3D JORDON CADPatient: MARILEE PORRASYovana Exam Date: 11/28/2022 : 1985 Gender:F Ordering : DR MIGUEL MORRISON . Admission #: [id number] Family : Order #: [id number] CLICK HERE TO VIEW EXAM RADIOLOGY REPORT PROCEDURE: MAMMOGRAM DIAGNOSTIC 3D BILATERAL CAD COMPARISON: US BREAST LEFT LIMITED, 11/28/2022. INDICATIONS: Lump in left breast Calculator Name NCI Breast Cancer Risk Assessment Tool 5 Year Breast Cancer Risk Not Reported. Lifetime Breast Cancer Risk Not Reported. Personal Breast Cancer No Personal Ovarian Cancer No Treatments None Family Cancers None LOCATION: [facility] BREAST COMPOSITION: Heterogeneously dense,which may obscure small masses. FINDINGS: DIAGNOSTIC CATEGORY 4--SUSPICIOUS FOR MALIGNANCY. FINDING DOES NOT EXHIBIT CLASSIC FINDINGS OF BREAST CANCER: The breasts are medium in size with heterogeneously dense fibroglandular tissue limiting diagnostic sensitivity.Scattered benign-appearing calcifications are present. Scattered benign-appearing lymph [...] LUMP SHOULD BE BIOPSIED. Dictated by: Ge Hidalgo MD on 11/28/2022 at 10:55 Approved by: Ge Hidalgo MD on 11/28/2022 at 11:05Mansfield HospitalUS BREAST LEFT LIMITEDon 16-04-8700FX BREAST LEFT LIMITEDPatient: MARILEE PORRAS Exam Date: 11/28/2022 : 1985 Gender:F Ordering : DR MIGUEL MORRISON . Admission #: [id number] Family : Order #: [id number] CLICK HERE TO VIEW EXAM RADIOLOGY REPORT [...] LUMP SHOULD BE BIOPSIED. Dictated by: Ge Hidalgo MD on 12/07/2022 at 07:40 Approved by: Ge Hidalgo MD on 12/07/2022 at 07:43[facility] COVID/FLU/RSV RT-PCRon 38-47-5873CVZL-CoV-2 (COVID-19) RNA BALTA+probe Ql (Unsp spec)NegativeMadigan Army Medical Center FileHold Document Management software Other COVID/FLU/RSV RT-PCRNegativeMadison InDMusic Other PAC ACOG PANEL 2: 30 to 65on 09-13-2022..NormalKettering Health HamiltonComment on above:Result Comment: Performed at: WBPerformed By: #### [id number] #### [facility] [address] [place] [address] Dr. Sherri SegundoAge Gdln ACOG Yjbcaiy50-28ZlsdayNmiUniversity Hospitals Geauga Medical CenterComment on above:Performed By: #### [id number] #### [facility] [address] [place] [address] Dr. Sherri SegundoDIAGNOSIS:CommentMansfield HospitalComment on above: Result Comment: NEGATIVE FOR INTRAEPITHELIAL LESION OR MALIGNANCY. THIS SPECIMEN WAS RESCREENED PART OF OUR TEST DESKMAN PROGRAM. Performed at: WBPerformed By: #### [id number] #### [facility] [address] [place] [address] Dr. Sherri SegundoHPV AptimaNegativeNormalNegativeKettering Health HamiltonComment on above:Result Comment: This nucleic acid amplification test detects fourteen high-risk HPV types (16,18,31,33,35,39,45,51,52,56,58,59,66,68) without differentiation. Performed at: =GPerformed By: #### [id number] #### [facility] [address] [place] [address] Dr. Sherri SegundoHPV Genotype ReflexComACMC Healthcare System Glenbeigh on above:Result Comment: Criteria not met, HPV Genotype not performed. Performed at: WBPerformed By: #### [id number] #### [facility] [address] [place] [address] Dr. Sherri SegundoMethodology:CommentCenterville on above: Result Comment: This liquid based ThinPrep(R) pap test was screened with the use of an image guided system. Performed at: WBPerformed By: #### [id number] #### [place] [address] Dr[address] Sherri SegundoNote:CommentCenterville on above:Result Comment: The Pap smear is a screening test designed to aid in the detection of premalignant and malignant conditions of the uterine cervix. It is not a diagnostic procedure and should not be used as the sole means of detecting cervical cancer. Both false-positive and false-negative reports do occur. . Performed at: WBPerformed By: #### [id number] #### [facility] [address] [place] [address] Dr. Sherri SegundoPerformed by:CommentCenterville on above: Result Comment: Paola Estrada Exercise Manager Performed at: WBPerformed By: #### [id number] #### [facility] [address] [place] [address] Dr. Sherri SegundoQC reviewed by:[facility] on above:Result Comment: Bere Prieto, Supervisory Exercise Manager (ASCP) Performed at: WBPerformed By: #### [id number] #### [facility] [address] [place] [address] Dr. Sherri SegundoSpecimen adequacy:CommentNormalThe Yuliet HospitalComment on above:Result Comment: Satisfactory for evaluation. Endocervical and/or squamous metaplastic cells (endocervical component) are present. Performed at: WBPerformed By: #### [id number] #### [facility] [address] [address] [address] Sherri Mcdonnell AUTO DIFFon 19-35-0409YRSJ #0.1 103/ulNormal0.0-0.1The [facility] HospitalComment on above:Performed By: #### CBC #### [facility] [address] [place] [address] Dr. Sherri SegundoBasophils/100 WBC (Bld)1.1 %Normal0.2-2.0The [facility] Comment on above:Performed By: #### CBC #### [facility] [address] [place] [address] Dr. Sherri CoreaO #0.2 103/ulNormal0.0-0.7The [facility] HospitalComment on above: Performed By: #### CBC #### [facility] [address] [place] [address] Dr. Sherri Coreaosinophils/100 WBC (Bld)4.5 %Normal0.9-7.0The [facility] Comment on above:Performed By: #### CBC #### [facility] [address] [place] [address] Dr. Sherri Corearythrocyte distribution width (RBC) [Ratio]11.9 %Jecqok19.0-15.0 The [facility] HospitalComment on above:Performed By: #### CBC #### [facility] [address] [place] [address] Dr. Sherri SegundoHematocrit (Bld) [Volume fraction]40.2 %Tvbkrt51.0-48.0The [facility] HospitalComment on above:Performed By: #### CBC #### [facility] [address] [place] [address] Dr. Sherri SegundoHemoglobin (Bld) [Mass/Vol]13.5 g/wWBmqvfa10.0-16.0The [facility] HospitalComment on above:Performed By: #### CBC #### [facility] [address] [place] [address] Dr. Sherri Morrison #0.01 10e3/ulNormal0.00-0.03The [facility] on above:Performed By: #### CBC #### [facility] [address] [place] [address] Dr. Sherri Morrison %0.2 %Normal0.0-0.5The [facility] HospitalComsinai-grace hospital on above: Performed By: #### CBC #### [facility] [address] [place] [address] Dr. Sherri Henriquez #1.6 103/ulNormal1.2-3.8The [facility] on above:Performed By: #### CBC #### [facility] [address] [place] [address] Dr. Sherri Hudsonhocytes/100 WBC (Bld)35.2 %Kmpeqw64.5-60.0[facility] on above:Performed By: #### CBC #### [facility] [address] [place] [address] Dr. Sherri PiersonUAL DIFF REQNONormalThe [facility] on above: Performed By: #### CBC #### [facility] [address] [place] [address] Dr. Sherri Oliver (RBC) [Entitic mass]30.6 pmZrdcvg55.7-34.0[facility] on above:Performed By: #### CBC #### [facility] [address] [place] [address] Dr. Sherri Oliver (RBC) [Mass/Vol]33.6 g/gDIapvyr69.9-35.2[facility] on above:Performed By: #### CBC #### [facility] [address] [place] [address] Dr. Sherri Oliver (RBC) [Entitic vol]91.2 zZKbmhvc52.0-99.0The Yuliet HospitalComment on above:Performed By: #### CBC #### [facility] [address] [address] [address] Sherri Ye #0.4 103/ulNormal0.3-0.8The [facility] HospitalComment on above:Performed By: #### CBC #### [facility] [address] [address] [address] Sherri Martinezocytes/100 WBC (Bld)8.4 %Normal1.7-12.0The [facility] Comment on above:Performed By: #### CBC #### [facility] [address] [place] [address] Dr. Sherri Douglass #2.3 103/ulNormal1.4-6.5The [facility] Park Hospitalment on above:Performed By: #### CBC #### [facility] [address] [place] [address] Dr. Sherri Mullinsutrophils/100 WBC (Bld)50.6 %Uwczyb02.0-75.0The [facility] HospitalComment on above:Performed By: #### CBC #### [facility] [address] [place] [address] Dr. Sherri William mean volume (Bld) [Entitic vol]10.3 fLNormal9.5-13.5The [facility] Hospitalment on above:Performed By: #### CBC #### [facility] [address] [place] [address] Dr. Sherri SegundoPLT278 103/siJlnxti835-052Iup [facility] HospitalComment on above: Performed By: #### CBC #### [facility] [address] [place] [address] Dr. Sherri SegundoRBC4.41 106/ulNormal4.20-5.40The [facility] on above:Performed By: #### CBC #### [facility] [address] [place] [address] Dr. Sherri SegundoWBC4.6 103/ulNormal4.0-11.0[facility] on above: Performed By: #### CBC #### [facility] [address] [address] [address] Sherri SegundoGLYCOHEMOGLOBIN A1Con 63-98-7065FUD RECOMMENDATIONSEE BELOWSt. Anthony's Hospital on above:Result Comment: ADA RECOMMENDED LIMIT 4.0 - 6.0 ADA THERAPEUTIC TARGET < 7.0 ACTION SUGGESTED > 7.0Performed By: #### A1C #### [facility] [address] [address] [address] Sherri SegundoGlucose [Mass/Vol]100 mg/dLNoMercy Health Defiance Hospital on above:Performed By: #### A1C #### [facility] [address] [place] [address] Dr. Sherri SegundoHbA1c (Bld) [Mass fraction]5.1 %Normal4.5-6.2[facility] on above:Performed By: #### A1C #### [facility] [address] [place] [address] Dr. Sherri SegundoLIPID PROFILEon 90-86-5633UEHD-HDL RATIO NORMSEE [facility] HospitalComsinai-gr[facility] hospital on above:Result Comment: 3.3 - 4.4 LOW RISK 4.4 - 7.1 AVERAGE RISK 7.1 - 11.0 MODERATE RISK >11.0 HIGH RISKPerformed By: #### [id number] #### [facility] [address] [place] [address] Dr. Sherri SegundoCholesterol [Mass/Vol]219 mg/dLCritically high<=200[facility] on above:Performed By: #### [id number] #### [facility] [address] [place] [address] Dr. Sherri SegundoCholesterol in HDL [Mass/Vol]86 mg/dLCritically snzt44-28[facility] on above:Performed By: #### [id number] #### [facility] [address] [place] [address] Dr. Sherri Carpenteresterol in LDL [Mass/Vol]120.8 mg/dLNormalThe Cove HospitalComment on above:Performed By: #### [id number] #### [facility] [address] [address] [address] Sherri SegundoCholesterol.total/Cholesterol in HDL [Mass ratio]2.5 {ratio} NormalThe [facility] HospitalComment on above:Performed By: #### [id number] #### [facility] [address] [address] [address] Sherri Weaver NORMAL> or = 60 mg/dl - LOW CARDIOVASCULAR RISK <40 mg/dl - HIGH CARDIOVASCULAR RISKMansfield HospitalComment on above:Performed By: #### [id number] #### [facility] [address] [place] [address] Dr. Sherri SegundoLDL CALC NORMALSEE BELOWMansfield HospitalComment on above:Result Comment: <100 mg/dl OPTIMAL 100 - 129 mg/dl NEAR OR ABOVE OPTIMAL 130 - 159 mg/dl BORDERLINE HIGH 160 - 189 mg/dl HIGH >190 mg/dl VERY HIGH Performed By: #### [id number] #### [facility] [address] [place] [address] Dr. Sherri SegundoTriglyceride [Mass/Vol]61 mg/dLNormal<=150[facility] Comment on above:Performed By: #### [id number] #### [facility] [address] [place] [address] Dr. Sherri SegundoVLDL CALC12.2 mg/dLNoUniversity Hospitals Geauga Medical CenterComment on above: Performed By: #### [id number] #### [facility] [address] [place] [address] Dr. Sherri SegundoPROF 14(COMP METB)on 68-81-0175Lrvdhcd [Mass/Vol]4.1 g/dLNormal 3.4-5.0The [facility] HospitalComs[facility] on above:Performed By: #### [id number] #### [facility] [address] [place] [address] Dr. Sherri SegundoAlbumin/Globulin [Mass ratio]1.3 {ratio}NormalThe [facility] HospitalComment on above:Performed By: #### [id number] #### [facility] [address] [address] [address] Sherri Davies [Catalytic activity/Vol]65 U/WJazoye45-375Cem [facility] HospitalComment on above:Performed By: #### [id number] #### [facility] [address] [address] [address] Sherri Shelby [Catalytic activity/Vol]14 U/JQnxtrl07-95Dsh [facility] HospitalComment on above:Performed By: #### [id number] #### [facility] [address] [address] [address] Sherri Pittson gap [Moles/Vol]11.0 mmol/LNormalThe [facility] Comment on above:Performed By: #### [id number] #### [facility] [address] [address] [address] Sherri SegundoAST [Catalytic activity/Vol]11 U/LCritically ebg35-66Pxa [facility] HospitalComment on above:Performed By: #### [id number] #### [facility] [address] [address] [address] Sherri SegundoBilirubin [Mass/Vol]0.7 mg/dLNormal0.2-1.0The [facility] Comment on above:Performed By: #### [id number] #### [facility] [address] [address] [address] Sherri SegundoCalcium [Mass/Vol]8.9 mg/dLNormal8.5-10.1The [facility] Comment on above:Performed By: #### [id number] #### [facility] [address] [address] [address] Sherri SegundoChloride [Moles/Vol]101 mmol/ORaalnc26-076Woh [facility] Comment on above:Performed By: #### [id number] #### [facility] [address] [address] [address] Sherri SegundoCO2 [Moles/Vol]30.9 mmol/ARjrdan05.0-32.0The [facility] Comment on above:Performed By: #### [id number] #### [facility] [address] [address] [address] Sherri SegundoCreatinine [Mass/Vol]0.87 mg/dLNormal0.55-1.02[facility] HamiltonComment on above:Performed By: #### [id number] #### [facility] [address] [address] [address] Sherri CoreaGFR-AF ANDORRAN>60Normal>=60The [facility] HospitalComment on above:Performed By: #### [id number] #### [facility] [address] [address] [address] Sherri CoreaGFR-NON AF ANDORRAN>60Normal>=60The [facility] HospitalComment on above:Performed By: #### [id number] #### [facility] [address] [address] [address] Sherri SegundoGlobulin (S) [Mass/Vol]3.2 g/dLNormalThe [facility] HospitalComment on above:Performed By: #### [id number] #### [facility] [address] [address] [address] Sherri SegundoGlucose [Mass/Vol]97 mg/hSZczotr72-287XpzKettering Health Hamilton Comment on above:Performed By: #### [id number] #### [facility] [address] [address] [address] Sherri SegundoPotassium [Moles/Vol]3.9 mmol/LNormal3.5-5.1The [facility] Comment on above:Performed By: #### [id number] #### [facility] [address] [address] [address] Sherri SegundoProtein [Mass/Vol]7.3 g/dLNormal6.4-8.2The [facility] Comment on above:Performed By: #### [id number] #### [facility] [address] [address] [address] Sherri SegundoSodium [Moles/Vol]139 mmol/RWsylap452-456Clj [facility] Comment on above:Performed By: #### [id number] #### [facility] [address] [address] [address] Sherri Petersen nitrogen [Mass/Vol]13.0 mg/dLNormal7.0-18.0The [facility] HospitalComment on above:Performed By: #### [id number] #### [facility] [address] [address] [address] Sherri SegundoUrea nitrogen/Creatinine [Mass ratio]14.9 mg/mgNormFlower Hospitale [facility] HospitalComment on above:Performed By: #### [id number] #### [facility] [address] [address] [address] Sherri Heard 35-69-7937HNR5.719 uIU/mLNormal0.358-3.740The [facility] HospitalComment on above:Performed By: #### [id number] #### [facility] [address] [place] [address] Dr. Sherri SegundoXR HAND RT MIN 3Von 93-91-2203JS HAND RT MIN 3VEXAM: XR HAND RT MIN 3V HISTORY: Hand pain and edema COMPARISON: None. TECHNIQUE: 3 views FINDINGS: No osseous lesion, fracture, dislocation or subluxation. Joint spaces are normal. No visualized effusion. No visualized soft tissue edema. IMPRESSION: Normal x-rays Electronically authenticated by: GE GONZALES Date: 2022-04-23 21:58[facility] Vital Signs Date TimeVital SignValuePerforming PzafbitanEoitbsdb32-82-3843 17:30-0500Body uthgzj520.94 Nigel Rodrigues Other [employer] Other 12-29-2022 17:30-0500Body mass index (BMI) [Ratio] 24.56 kg/d4IxtqrxzoaJennifer Rodrigues Other [employer] Other 12-29-2022 17:30-0500Body xkltnvsuwte07.2 [degF] Jennifer Rodrigues Other [place] [employer] Other 12-29-2022 17:30-0500Body wemojl86.97 kgJennifer Rodrigues Other [employer] Other 12-29-2022 17:30-0500Respiratory rate18 /minSroly Rodrigues Other [employer] Other 12-29-2022 17:30-2725SsT2% (BldA) [Mass fraction]98 % Jennifer Rodrigues Other [employer] Other Encounters Encounter DateEncounter TypeCare ProviderFacilityStart: 06-05-2025 End: 30-52-4867Kjvfhazqu Result EncounterCorey Prince DO Work Phone: n[facility] External Department UnsolicitedStart: 06-05-2025 End: 57-63-4160Ewvsjwqan Result EncounterCorey Prince DO Work Phone: noms External Department UnsolicitedStart: 06-02-2024 End: 66-00-3717Rusrrftrf Result EncounterCorey Prince DO Work Phone: noms External Department UnsolicitedStart: 06-02-2024 End: 02-41-0837Shhvgfgub Result EncounterCorey Prince DO Work Phone: noms External Department UnsolicitedStart: 04-10-2024 End: 75-36-9088ywcyonigwgIGYIC FAZIONot AvailableStart: 44-45-2107nyklcstakaEI MIGUEL PRINCE .Facility:V4Zusgl: 12-21-2022 End: 46-66-7780ubqjuykutoEU MIGUEL PRINCE .Facility:C9Sbqvj: 12-07-2022 End: 32-04-4351tzdidsbdsyIH MIGUEL PRINCE .Facility:U1Kudsr: 12-05-2022 End: 45-36-0186aovejwvycsEL MIGUEL PRINCE .Facility:U0Union: 11-28-2022 End: 37-91-7689ewtmcugfnkXA GE Jessica WESTFacility:J4Hgvwg: 11-02-2022 End: 15-56-8014riyiyyxeceWbmwjeiyf Breault Other [place] [employer] Other Start: 51-21-4063Qeaquu outpatient visit 25 minutes Jennifer RodriguesFPManny Urgent Care ClydeStart: 09-05-2022 End: 42-14-9237njdbjvavjlOI MIGUEL PRINCE .Facility:C6Zwevm: 57-65-5867Nehekblsx for general adult medical examination without abnormal findingsDR YARED HOY . [facility] HospitalStart: 06-27-2022 End: 08-21-9688ysiryslpspXS YARED HOY .Facility:F7Qmubq: 06-27-2022 End: 07-12-9564Ojuwrwhjm for general adult medical examination without abnormal findingsDR YARDE HOY .Facility:Y6Mpebe: 04-23-2022 End: 74-74-4223pdgcwvepstYVUZW PARKERFacility:H1 Procedures DateProcedureProcedure DetailPerforming ClinicianStart: 70-32-1072HO TOMOSYNTHESIS SCREENING BICorey Prince DO Work Phone: Start: 61-45-1431CC TOMOSYNTHESIS SCREENING BICorey Prince DO Work Phone: Plan of Treatment DateCare ActivityDetailAuthorStart: 10-21-2025 End: 50-03-6234Oatiahj encounter nmygcyynt48/17/2025 1:00 PM EST Procedure Visit [facility] Yuliet FLORE[facility] [address] [place] [address] Maida Jang PA [address] [place] [address] [facility] Yuliet FLORE[facility] Payers DatePayer CategoryPayerPolicy [id number] [id number] [id number] 2..1.904287.3.57[id number] 2.0.1.257381.3.57[id number] 2.0.1.627727.3.57[id number] 2.0.1.370870.3.57[id number] 2.0.1.010739.3.57[id number] 2.160.1.150186.3.57[id number] 2.0.1.477313.3.57[id number] 2.160.1.092591.3.57[id number] 2.0.1.149662.3.579.2.1259 Social History DateTypeDetailFacilityStart: 21-25-3342Zrz [facility] [employer] Other Start: 22-82-1420Evpxwtc smoking status NHISEx-smoker [facility] HealthcareHistory of tobacco useCurrent smokerNOMS HealthcareHistory of tobacco useCigarette SmokerNOMS HealthcareStart: 80-88-8558Yvcnnbthsf smoked current (pack per day) - Reported0.5NOMS HealthcareStart: 34-86-2702Nwgfiny use and exposureSmokeless tobacco non-userNOMS HealthcareStart: 67-16-7982Rfnljqqta beverage intakeCurrent drinker of alcohol (finding)[facility] HealthcareStart: 57-65-3635Vtr assigned at [facility] huntersvilleFemalTooele [facility] Hospital HealthcareStart: 77-08-8921Egyuid identityIdentifies as female gender (finding)[facility] HealthcareStart: 04-03-2024 Sexual orientationHeterosexual (finding)[facility] HealthcareStart: 51-09-8112Zwx FemaleACADIA HEALTHCARE Healthcare Evaluation note 11-02-2022 Note Date & OqbtVnosKilhdpdr31-58-9842 Evaluation note* Encounter Date Diagnosis Assessment Notes Treatment Notes Treatment Clinical Notes Oct, Contact with and (pike spected) exposure to other viral communicable diseases (ICD-10 - Z20.828) Oct,Viral URI (ICD-10 - J06.9)Symptoms appear viral today. Bacteria infections take several days to weeks of symptoms to develop.Use saline nasal spray before prescription one and you have better results. Recommend OTC medications such as Mucinex DM, Delsym, Cepocal Lozenges Continue tylenol/ibuprofen for general discomfort. Encourage fluids. Symptoms should improve within the next 10-14 days. If no improvement of symptoms in 14 days call primary care provider to discuss antibiotic therapy [employer] Other History general Narrative - Reported Note Date & TypeNoteFacilityHistory general Narrative - Reported* Type Description Date Medical History Hypothyroidism [employer] Other Summary Purpose Family History No Family History Records FoundNo Family History Records Found Advance Directives No Advanced Directives Records FoundNo Advanced Directives Records Found Additional Source Comments REASON FOR VISIT (unrecogniz ed section and content) H/A, COUGH, CONGESTION INFORMATION SOURCE (unrecogn ized section and content) DATE CREATED AUTHOR 01/04/2023 [facility] DATE CREATED AUTHOR LEELEE ZAMORA 04/11/2024 [facility] EPIC FOR RECORDS PERTAINING TO PATIENTS WHO ARE [...] BE BASED ON THE PRIMARY CLINICAL RECORDS. [employer] provides no warranty or guarantee of the accuracy or completeness of information in this document.
[2025-11-03 14:05] LABS: Free T3 2.63 pg/mL (2.18-3.98); Thyroid Stimulating Hormone 0.245 uIU/mL (0.358-3.740)
== END 2025-11-03 13:05 | disposition home or self-care (01) ==
LOC: LAB 13:04
PROVIDERS: PCP Family Medicine; Visit Provider Family Medicine
DX: Z00.00 Encounter for general adult medical examination without abnormal findings (principal)
CPT/HCPCS: 36415; 84436; 84443; 84481